=== PATIENT | male | born 1940 | race Caucasian/White ===

== ENCOUNTER 2016-11-11 05:47 | Day surgery (SDC) | payer MEDICARE ==
[2016-11-03 12:15] VITALS: BMI 34.9
[~2016-11-11 05:47] MED LIST: ALPRAZolam 0.25 MG TAB PO PRN; ALPRAZolam 0.5 MG TAB PO PRN; ASPIRIN 325 MG TAB PO STA; ATORVASTATIN 80 MG TAB PO STA; NITROGLYCERIN SL TABS 0.4 MG TAB SUBLINGUAL PRN; SODIUM CHLORIDE 0.9% 1,000 ML in EMPTY BAG 1 BAG IV ONE
[2016-11-11] MEDS ORDERED: SODIUM CHLORIDE 0.9% 1,000 ML IV ONE (06:15)
[2016-11-11] MEDS ORDERED: LIDOCAINE 2% INJ 20 MG/ML (20 ML MDV) ONE ×2 (08:47→12:19)
[2016-11-11] MEDS ORDERED: MIDAZOLAM 2 MG/2 ML VIAL ONE ×2 (08:59→11:05)
[2016-11-11] MEDS ORDERED: diphenhydrAMINE 50 MG/ML 1 ML VIAL ONE (08:59)
[2016-11-11] MEDS ORDERED: diphenhydrAMINE 50 MG/ML 1 ML VIAL IVP ONE (09:05)
[2016-11-11] MEDS ORDERED: MIDAZOLAM 2 MG/2 ML VIAL IV ONE ×2 (09:06→09:07)
[2016-11-11] MEDS ORDERED: LIDOCAINE 2% INJ 20 MG/ML SQ ONE ×2 (09:07→12:21)
[2016-11-11] MEDS ORDERED: HEPARIN SODIUM 1,000 UNIT/ML VIAL ONE (09:27)
[2016-11-11] MEDS ORDERED: IOHEXOL 350 MG/ML 100 ML BOTTLE INJ ONE (09:30)
[2016-11-11] MEDS ORDERED: RX INFO: IV CONTRAST WAS GIVEN 1 EACH MISC MISCELLANE PRN ×2 (09:33→12:51)
--- NOTE | 2016-11-11 09:39 | P.PCN ---
Date of Procedure: 11/11/16 Preoperative Diagnosis: New-onset angina and strongly positive stress test Postoperative Diagnosis: Critical lesion involving the proximal to mid LAD Procedure(s) Performed: Left heart catheterization without left ventriculography Description of Procedure: HISTORY: This is a 76-year-old gentleman with history of hypertension and hypercholesterolemia who started having exertional chest pain recently patient had a positive stress test at low workloads with ischemia documented on the stress echocardiogram in the anteroapical area. Patient is advised to have a cardiac catheterization. Patient has been on beta blockers and nitrates along with aspirin. CONSENT:I have discussed the risks, benefits and alternative therapies for the above-mentioned procedure and for both sedation/analgesia as well as necessary blood product administration, if indicated, as they pertain to this patient. The patient has indicated understanding and acceptance of the risks and procedures discussed. PROCEDURE: Patient was brought to the lab in a fasting state. Patient was given some IV sedation. The right groin is infiltrated with lidocaine and right femoral artery was entered using Seldinger technique. A 6-[place] catheter was left in place and selective coronary arteriography was performed. Patient tolerated the procedure well. Patient is found to have a critical lesion in the proximal LAD and is waiting to have stent placement by Dr. DELORES Post. No immediate complications were noted and patient was transferred to [facility] in a stable condition HEMODYNAMICS: The aortic pressure is about 130/70. Left ankle end-diastolic pressures of 15. There was no gradient across the aortic valve. SELECTIVE CORONARY ARTERIOGRAPHY: LEFT MAIN: Normal length and patent THE LEFT ANTERIOR DESCENDING CORONARY ARTERY: This is a good caliber vessel with about 95% complex lesion involving the proximal LAD between first septal and diagonal branches. Rest of the vessel is free of occlusive disease THE LEFT CIRCUMFLEX AND IS CORONARY ARTERY: This is a moderate caliber vessel giving rise to good-sized OM branch. This is free of any significant occlusive disease THE RIGHT CORONARY ARTERY: This is a dominant vessel giving rise to good-sized PDA and PLV. This is free of any significant occlusive disease LEFT VENTRICULOGRAPHY: Not performed FINAL IMPRESSION: Critical lesion involving the LAD between the first septal and diagonal branches. The rest of the vessels are free of occlusive disease PLAN: Stent placement of LAD to be done by Dr. DELORES Post later today PROGNOSIS: Fair
[2016-11-11] MEDS ORDERED: SODIUM CHLORIDE 0.9% 1,000 ML IV SCH ×2 (09:45→12:55)
[2016-11-11] MEDS ORDERED: MIDAZOLAM 2 MG/2 ML VIAL IVP ONE (11:28)
[2016-11-11] MEDS ORDERED: BIVALIRUDIN BOLUS 250 MG/50 ML IV ONE (11:35)
[2016-11-11] MEDS ORDERED: IV FLUID CONTINUATION 450 ML IV ONE (11:36)
[2016-11-11] MEDS ORDERED: BIVALIRUDIN 250 MG in SODIUM CHLORIDE 0.9% 50 ML IV ONE ×2 (11:36→12:14)
[2016-11-11] MEDS ORDERED: NITROGLYCERIN 1000MCG/10ML SYRINGE INTRACORON ONE (12:06)
[2016-11-11] MEDS ORDERED: niCARdipine Syringe (1,000 mcg/10 mL) INTRACORON ONE (12:10)
[2016-11-11] MEDS ORDERED: niCARdipine 25 MG/10 ML VIAL ONE (12:10)
[2016-11-11] MEDS ORDERED: SODIUM CHLORIDE 0.9% (PF) 10 ML VIAL ONE (12:10)
[2016-11-11] MEDS ORDERED: NOREPINEPHRINE 4 MG in SODIUM CHLORIDE 0.9% 250 ML IV ONE (12:14)
[2016-11-11] MEDS ORDERED: HYDROmorphone 2 MG/ML 1 ML SYRINGE ONE (12:20)
[2016-11-11] MEDS ORDERED: PRASUGREL 10 MG TAB ONE (12:20)
[2016-11-11] MEDS ORDERED: PRASUGREL 10 MG TAB PO ONE (12:23)
[2016-11-11] MEDS ORDERED: HYDROmorphone 2 MG/ML 1 ML SYRINGE IVP ONE (12:23)
[2016-11-11] MEDS ORDERED: SODIUM CHLORIDE 0.9% 500 ML IV ONE (12:26)
[2016-11-11] MEDS ORDERED: IODIXANOL 320 MG/ML 100 ML INTRAARTER ONE (12:33)
[2016-11-11] MEDS ORDERED: ZOLPIDEM 5 MG TAB PO PRN (12:51)
[2016-11-11] MEDS ORDERED: NITROGLYCERIN SL TABS 0.4 MG TAB SUBLINGUAL PRN (12:51)
[2016-11-11] MEDS ORDERED: MAG HYDROX/AL HYDROX/SIMETH 30 ML CUP PO PRN (12:51)
[2016-11-11] MEDS ORDERED: ATORVASTATIN 80 MG TAB PO SCH (21:00)
--- NOTE | 2016-11-11 21:57 | PTCA ---
DATE OF SERVICE: 11/11/2016 PROCEDURE: Percutaneous transluminal coronary angioplasty and stenting of proximal left anterior descending coronary artery. PERFORMED BY: Dr. Fartun Post. CLINICAL INFORMATION: Mr. Eddie Garza is a 76-year-old gentleman with a history of hypertension, hyperlipidemia and a recent strongly positive stress test who underwent a cardiac catheterization performed by Dr. Hernandez from the right femoral approach. Study revealed a proximal LAD lesion located at a major septal branch, both before and after the septal branch, and this was a 90% lesion with haziness suggestive of thrombus. The other vessels were relatively free of significant disease, although the circumflex was very tortuous and the origin seemed a bit suspicious. PROCEDURE NOTE: The existing 6 Cambodian introducer in the right femoral artery was used to perform the procedure. I tried different guide catheters, but eventually a 4.0 Voda catheter was appropriate for guide support. A BMW wire was kept distally. Without predilatation, a 3.25 caliber 15 mm long Xience stent was deployed. With the deployment of stent, patient had chest pain and precordial ST elevation. After the stent deployment, the lesion looked stable, but the septal branch was totally occluded, which I expected, given the fact it was coming from within the middle of the lesion. Septal branch was small, less than 1.5 mm caliber, but appeared to supply a fair amount of myocardium. I gave some nitroglycerin, and with this patient became hypotensive and there was some sluggish flow in the entire LAD transiently; required Levophed for about 3 to 4 minutes. However, he stabilized immediately and I gave nicardipine 150 mcg. Eventual angiograms revealed excellent angiographic result. Beyond the stented segment in the mid portion there was a 35% to 40% stenosis. Patient remained hemodynamically stable and was completely free of chest pain. He had transient chest pain requiring some Dilaudid for the septal occlusion. The residual stenosis was 0%, with remarkable improvement in angiographic appearance and flow without complication. The sheath was taken out and a Perclose device used to secure hemostasis, and he was sent to the room in stable condition. ASSESSMENT: From pre-procedure stenosis of about 90% with haziness and thrombus before and after the septal branch, the angiographic result was excellent in the LAD with occlusion of the septal branch. EKG was normal. Flow was excellent. The patient was free of chest pain at the time of leaving the medical laboratory technologist. Results were discussed with the patient and family and also with Dr. Hernandez.
--- NOTE | 2016-11-11 21:59 | LTR ---
November 11, 2016 RE: Eddie Garza Dear Dr. Head, Thank you for the opportunity to participate in the care of Mr. Langley. Please find enclosed my detailed PTCA report for your records. His proximal LAD was addressed with a drug-eluting stent. He should be on aspirin and Effient or Plavix without interruption for the next one year. Thank you for your referral. Please call with questions. Sincerely, KATIA MCKEON MD
[2016-11-12 06:10] LABS: Basophils % (A) 1 %; CH 31.4; CHCM 32.8; Eosinophils # (A) 0.1 k/uL (0-0.7); Eosinophils % (A) 2 %; HCT 40.6 % (39.0-53.0); HDW 2.43; HGB 12.7 gm/dL (13.0-17.5); Luc # (Auto) 0.09; Luc % (Auto) 2; Lymphocytes # (A) 1.2 k/uL (1.0-4.8); Lymphocytes % (A) 23 %; MCH 30.1 pg (25.0-35.0); MCHC 31.2 g/dL (31.0-37.0); MCV 96.3 fL (80.0-100.0); Monocytes # (A) 0.4 k/uL (0-1.0); Monocytes % (A) 8 %; Neutrophils # (A) 3.5 k/uL (1.3-7.7); Neutrophils % (A) 66 %; RBC 4.22 m/uL (4.30-5.90); RDW 13.6 % (11.5-15.5); WBC 5.4 k/uL (3.8-10.6)
[2016-11-12 06:22] LABS: Anion Gap 9 mmol/L; Blood Urea Nitrogen 20 mg/dL (9-20); Calcium 9.3 mg/dL (8.4-10.2); Carbon Dioxide 24 mmol/L (22-30); Chloride 108 mmol/L (98-107); Glucose 102 mg/dL (74-99); Non-African American GFR(MDRD) 59 (>60 ml/min/1.73 sqM); Potassium 4.7 mmol/L (3.5-5.1); Sodium 141 mmol/L (137-145)
[2016-11-12] MEDS: PANTOPRAZOLE 40 MG TABLET PO SCH ×2 (06:40→09:11)
[2016-11-12] MEDS ORDERED: ASPIRIN 81 MG CHEW PO SCH (09:00)
[2016-11-12] MEDS ORDERED: METOPROLOL TARTRATE 25 MG TAB PO SCH (09:00)
[2016-11-12 09:11] VITALS: BP 135/70; PULSE 77; RESP 16; TEMP 97.1
--- NOTE | 2016-11-12 09:32 | P.PN ---
Subjective Principal diagnosis: LAD stent Discharge note This is a pleasant 76-year-old gentleman with history of hypertension and hyperlipidemia who was noted to the hospital to undergo cardiac catheterization because of a strongly positive stress test. Cardiac cath was performed by Dr. monet Kearney and subsequently patient underwent angioplasty with stent placement of the LAD. EKG this morning shows normal sinus rhythm with no changes from post-PCI. Patient denies any chest pain or difficulty in breathing, he has been up ambulating without any difficulty this morning. Blood pressure this morning 134/70, heart rate in the 70s. Hemoglobin this morning 12.7, platelet count 160, potassium 4.7, BUN 20, creatinine 1.2. Patient is currently on aspirin 81 mg daily, Lipitor 80 mg daily, metoprolol tartrate 12-1/2 mg daily, Protonix 40 mg one tablet by mouth twice a day, Effient 10 mg daily, and sublingual nitroglycerin as needed for chest pain. He is currently not on an GUILLERMO inhibitor because the patient was quite hypotensive. This will be reevaluated at his outpatient office appointments. He may be able to be discharged home today, we will make him a follow-up appointment with Dr. monet Kearney in the office post discharge. Objective - Vital Signs Vital signs: Vital Signs Temp 97.1 F L 11/12/16 08:00 Pulse 77 11/12/16 08:00 Resp 16 11/12/16 08:00 BP 135/70 11/12/16 08:00 Pulse Ox 97 11/12/16 08:00 Intake & Output 11/11/16 11/12/16 11/12/16 18:59 06:59 18:59 Intake Total 732.5 Output Total 0 450 Balance 732.5 -450 Weight 122.4 kg 120.6 kg Intake: IV 732.5 Sodium Chloride 0.9% 1, 100 000 ml @ 100 mls/hr IV . Q10H BRENDEN Rx#:[id number] Oral 0 Output: Urine 0 450 Other: # Voids 1 - Exam PHYSICAL EXAMINATION: HEENT: Head is atraumatic, normocephalic. Pupils equal, round. Neck is supple. There is no elevated jugular venous pressure. HEART EXAMINATION: Heart S1, S2 normal. No murmur or gallop heard. CHEST EXAMINATION: Lungs are clear to auscultation and precussion. No chest wall tenderness is noted on palpation or with deep breathing. ABDOMEN: Soft, nontender. Bowel sounds are heard. No organomegaly noted. Right groin soft, no evidence of any hematoma, good distal pulse. EXTREMITIES: 2+ peripheral pulses with no evidence of peripheral edema and no calf tenderness noted. NEUROLOGIC patient is awake, alert and oriented -3. . - Labs CBC & Chem 7: 11/12/16 05:52 11/12/16 05:52 Labs: Abnormal Lab Results - Last 24 Hours (Table) 11/12/16 11/12/16 Range/Units 05:52 05:52 RBC 4.22 L (4.30-5.90) m/uL Hgb 12.7 L (13.0-17.5) gm/dL Chloride 108 H (98-107) mmol/L Glucose 102 H (74-99) mg/dL Assessment and Plan Plan: Assessment and plan #1 status post angioplasty with stenting of the left anterior descending artery. #2 positive stress test #3 hypertension history #4 hyperlipidemia Plan Patient may be able to be discharged home today. We will make a follow-up appointment with Dr. Hernandez in the office in one week. Discharge medications include aspirin 81 mg daily, Effient 10 mg daily, Lipitor 80 mg daily, metoprolol tartrate 12-1/2 mg daily, Protonix 40 mg one tablet by mouth twice a day and sublingual nitroglycerin as needed for chest pain. Patient has been educated regarding his medications and prescriptions for the above medications have been provided. DNP note has been reviewed, I agree with a documented findings and plan of care. Patient was seen and examined.
[2016-11-12] MEDS ORDERED: PRASUGREL 10 MG TAB PO SCH (12:53)
== END 2016-11-12 11:28 | disposition home or self-care (01) ==
LOC: CATHCVL 05:47 → 6SEL 12:21 → CATHCVL 11-12 11:28
PROVIDERS: ATTEND Internal Medicine Cardiovascular Disease
DX: I25.110 Atherosclerotic heart disease of native coronary artery with unstable angina pectoris (principal); I25.82 Chronic total occlusion of coronary artery; I21.29 ST elevation (STEMI) myocardial infarction involving other sites; I95.2 Hypotension due to drugs; T46.3X5A Adverse effect of coronary vasodilators, initial encounter; Y92.234 Operating room of hospital as the place of occurrence of the external cause; I10 Essential (primary) hypertension; E78.00 Pure hypercholesterolemia, unspecified; E78.5 Hyperlipidemia, unspecified; Z79.82 Long term (current) use of aspirin; Z79.899 Other long term (current) drug therapy
CPT/HCPCS: 93458; 80048; 85025; C9600; C1769 ×4; C1887 ×4; C1894; C1874; C1760; J2001; J2250; J1170; J1200; Q9967 ×2; J0583; J1644

== ENCOUNTER → 2016-12-22 | Outpatient (CLI) | payer MEDICARE ==
[2016-12-22 07:47] LABS: ALT 39 U/L (21-72); AST 29 U/L (17-59); Cholesterol 116 mg/dL (<200); HDL Cholesterol 46 mg/dL (40-60); Triglycerides 87 mg/dL (<150)
== END | disposition home or self-care (01) ==
LOC: LABWHC1 06:48
PROVIDERS: ATTEND Internal Medicine Cardiovascular Disease
DX: I25.10 Atherosclerotic heart disease of native coronary artery without angina pectoris (principal); E78.5 Hyperlipidemia, unspecified
CPT/HCPCS: 36415; 80061; 84450; 84460

== ENCOUNTER → 2018-06-21 | Outpatient (CLI) | payer MEDICARE ==
[2018-06-21 07:46] LABS: Albumin 3.9 g/dL (3.5-5.0); Bilirubin, Delta 0.2 mg/dL (0.0-0.2); Bilirubin,Unconjugated 0.6 mg/dL (0.0-1.1); Calcium 9.8 mg/dL (8.4-10.2); Potassium 4.3 mmol/L (3.5-5.1); Total Bilirubin 0.8 mg/dL (0.2-1.3); Total Protein 6.6 g/dL (6.3-8.2)
== END | disposition home or self-care (01) ==
LOC: LABWHC1 06:40
PROVIDERS: ATTEND Internal Medicine Cardiovascular Disease
DX: I25.10 Atherosclerotic heart disease of native coronary artery without angina pectoris (principal); E78.5 Hyperlipidemia, unspecified
CPT/HCPCS: 36415; 80048; 80061; 80076

== ENCOUNTER → 2019-06-20 | Outpatient (CLI) | payer MEDICARE ==
[2019-06-20 10:41] LABS: Albumin/Globulin Ratio 1.9 (1.60-3.17); Bilirubin, Conjugated 0.2 mg/dL (0.20-0.40); Bilirubin,Unconjugated 0.4 mg/dL; Globulin 2.1 g/dL (1.6-3.3); LDL Cholesterol,Calculated 52.6 mg/dL (0.0-131.0); Total Bilirubin 0.6 mg/dL (0.3-1.2); Total Protein 6.1 g/dL (6.2-8.2); VLDL Calculation 14.4 mg/dL (5.00-40.00)
== END ==
LOC: LABWHC1 06:34
PROVIDERS: ATTEND Internal Medicine Cardiovascular Disease
DX: I25.10 Atherosclerotic heart disease of native coronary artery without angina pectoris (principal); E78.5 Hyperlipidemia, unspecified
CPT/HCPCS: 36415; 80061; 80076

== ENCOUNTER → 2020-03-19 | Outpatient (CLI) | payer MEDICARE ==
[2020-03-19 15:25] LABS: Chol/HDL Ratio 2.22; LDL Cholesterol,Calculated 50.8 mg/dL (0.0-131.0); VLDL Calculation 11.2 mg/dL (5.00-40.00)
== END | disposition home or self-care (01) ==
LOC: LABWHC1 08:17
PROVIDERS: ATTEND Internal Medicine Cardiovascular Disease
DX: E78.5 Hyperlipidemia, unspecified (principal); I25.10 Atherosclerotic heart disease of native coronary artery without angina pectoris
CPT/HCPCS: 36415; 80061; 84450; 84460

== ENCOUNTER → 2022-03-31 | Outpatient (CLI) | payer MEDICARE ==
--- NOTE | 2022-04-01 08:57 | CA ---
Transthoracic Echo Report Name: Eddie Garza Age: 81 Gender: M : 1940 Exam Date: 03/31/2022 14:51 Exam Location: [facility] Ht (in): 72 Wt (lb): 260 Ordering Physician: Kevin Head MD Attending/Referring Phys: Kevin Head MD Metal Drilling Machine Operator Kristina Jorgensen MEG Procedure CPT: Indications: CAD Cardiac Hx: Technical Quality: Good Contrast 1: N/A Total Dose (mL): Contrast 2: Total Dose (mL): MEASUREMENTS (Male / Female) Normal Values 2D ECHO LV Diastolic Diameter PLAX 5.4 cm 4.2 - 5.9 / 3.9 - 5.3 cm LV Systolic Diameter PLAX 3.6 cm IVS Diastolic Thickness 1.5 cm 0.6 - 1.0 / 0.6 - 0.9 cm LVPW Diastolic Thickness 1.6 cm 0.6 - 1.0 / 0.6 - 0.9 cm LV Relative Wall Thickness 0.6 LA Volume 60.4 cm??? 18 - 58 / 22 - 52 cm??? M-MODE Aortic Root Diameter MM 4.2 cm LA Systolic Diameter MM 4.1 cm LA Ao Ratio MM 1.0 MV E Point Septal Separation 1.5 cm AV Cusp Separation MM 2.1 cm DOPPLER AV Peak Velocity 137.1 cm/s AV Peak Gradient 7.5 mmHg MV Area PHT 3.4 cm??? Mitral E Point Velocity 54.6 cm/s Mitral A Point Velocity 73.0 cm/s Mitral E to A Ratio 0.7 MV Deceleration Time 223.3 ms MV E' Velocity 6.4 cm/s Mitral E to MV E' Ratio 8.6 TR Peak Velocity 255.1 cm/s TR Peak Gradient 26.0 mmHg Right Ventricular Systolic Press 30.9 mmHg FINDINGS Left Ventricle Left ventricular ejection fraction is estimated at 50-55%. Moderately increased left ventricular wall thickness. Right Ventricle Normal right ventricular size and function. Right ventricular systolic pressure within normal limits. Right Atrium Normal right atrial size. Left Atrium Mildly increased left atrial volume. Mildly increased left atrial area. Mitral Valve Mild mitral regurgitation. Aortic Valve Trace to mild aortic regurgitation. Tricuspid Valve Mild tricuspid regurgitation. Pulmonic Valve Pulmonic valve not well visualized. Pericardium Normal pericardium. Aorta Normal size aortic root and proximal ascending aorta. CONCLUSIONS Normal left ventricular dimension and systolic function Mild aortic insufficiency Previewed by: Dr. Ciro Duncan MD (Electronically Signed) Final Date: 01 Apr 2022 08:56
== END | disposition home or self-care (01) ==
LOC: RADECHMAIN 14:37
PROVIDERS: ATTEND Family Medicine
DX: I35.1 Nonrheumatic aortic (valve) insufficiency (principal); I07.1 Rheumatic tricuspid insufficiency
CPT/HCPCS: 93306

== ENCOUNTER 2022-08-07 10:57 | Emergency (ER) | payer MEDICARE ==
[2022-08-07 11:25] VITALS: TEMP 97.9
--- NOTE | 2022-08-07 12:38 | CT ---
EXAMINATION TYPE: CT brain wo con, CT facial bones wo con CT DLP: 1139.4 (accession [id number]), Included in CT Brain DLP of 1129.4 (accession [id number]) mGycm, A utomated exposure control for dose reduction was used. DATE OF EXAM: 08/07/2022 12:27 PM COMPARISON: None CLINICAL INDICATION:Male, 82 years old with history of Head trauma from fall, Fall TECHNIQUE: Brain: Axial CT images of the brain were obtained with coronal and sagittal reformats created and rev iewed. Facial: Axial CT images of the brain with sagittal and coronal reformats. Contrast used: None. Oral contrast used: None. FINDINGS: Brain: Extra-axial spaces: No abnormal extra-axial fluid collections. Ventricular system: Within normal limits Cerebral parenchyma: No acute intraparenchymal hemorrhage or mass effect. The león-white junction is well differentiated. Cerebellum: Unremarkable. Mass effect: No evidence of midline shift. Intracranial vasculature: Atherosclerotic calcifications of the intracranial vessels. Calvarium/osseous structures: No depressed skull fracture. Paranasal sinuses and mastoid air cells: Mild scattered paranasal sinus disease. Visualized orbits: Orbital contents are intact. Facial: Right periorbital soft tissue edema. No evidence of fracture. There is increased pneumatization of th e frontal sinuses bilaterally. Scattered mucosal thickening of the paranasal sinuses. Bilateral Yasmin r air cells are noted. Unprotected anterior ethmoidal arteries bilaterally. IMPRESSION: 1. No acute intracranial process. 2. Periorbital soft tissue edema without evidence of fracture.
--- NOTE | 2022-08-07 12:45 | ED ---
Fall HPI - General Chief Complaint: Fall Stated Complaint: Fall Time Seen by Provider: 08/07/22 11:35 Source: patient, family, RN notes reviewed Mode of arrival: ambulatory - History of Present Illness Initial Comments: This is an 82-year-old male who presents to the emergency department for a fall. States that he was walking into yarsani, when he missed a step, causing him to f all face forward. Denies any loss of consciousness. Currently has pain and swelling around the right eye. Denies any visual changes. He does not have any injuries or pain to the arms, legs, or any other areas on his body. Pain is currently controlled at this time. He takes a baby aspirin daily and is otherwise not on any blood thinners. Denies any fevers, chills, sore throat, cough, dyspnea, chest pain, palpitations, abdominal pain, nausea, vomiting, diarrhea, or back pain. MD Complaint: fall Fall From: standing Fall Witnessed: yes, by bystander Place Fall Occurred: other (yarsani) Loss of Consciousness: none Prolonged Down Time?: no Location: face Context: tripped/slipped - Related Data Home Medications Medication Instructions Recorded Confirmed Aspirin [Adult Low Dose Aspirin EC] 81 mg PO DAILY 11/03/16 11/11/16 Cholecalciferol [Vitamin D3 (10 200 unit PO DAILY 11/03/16 11/11/16 Mcg = 400 Iu)] Losartan [Cozaar] 100 mg PO DAILY 11/03/16 11/11/16 Nitroglycerin Sl Tabs [Nitrostat] 0.4 mg SUBLINGUAL Q5M PRN 11/03/16 11/11/16 Omeprazole 20 mg PO BID 11/03/16 11/11/16 Terazosin [Hytrin] 5 mg PO BID 11/03/16 11/11/16 Previous Rx's Medication Instructions Recorded Atorvastatin [Lipitor] 80 mg PO HS #30 tab 11/12/16 Metoprolol Tartrate [Lopressor] 12.5 mg PO DAILY #30 tab 11/12/16 Prasugrel [Effient] 10 mg PO DAILY #30 tab 11/12/16 Allergies Allergy/AdvReac Type Severity Reaction Status Date / Time No Known Allergies Allergy Verified 08/07/22 11:25 Review of Systems ROS Statement: Those systems with pertinent positive or pertinent negative responses have been documented in the HPI. ROS Other: All systems not noted in ROS Statement are negative. Past Medical History Past Medical History: Hyperlipidemia, Hypertension, Osteoarthritis (OA) Additional Past Medical History / Comment(s): Hx detached retina. History of Any Multi-Drug Resistant Organisms: None Reported Past Surgical History: Heart Catheterization With Stent, Hernia Repair, Joint Replacement Additional Past Surgical History / Comment(s): 11/11/16 Cardiac stent to LAD. Other surgical hx: Right knee replacement, left hip replacement, hemorroidectomy, colonoscopy. Past Anesthesia/Blood Transfusion Reactions: No Reported Reaction Date of Last Stent Placement:: 11/11/16 Past Psychological History: No Psychological Hx Reported Smoking Status: Never smoker Past Alcohol Use History: None Reported Past Drug Use History: None Reported - Past Family History Mother Family Medical History: Cancer, Congestive Heart Failure (CHF), Diabetes Mellitus Additional Family Medical History / Comment(s): Skin cancer Father Family Medical History: Diabetes Mellitus Additional Family Medical History / Comment(s): Father had diabetes and a hiatal hernia. General Exam Limitations: no limitations General appearance: alert, in no apparent distress Head exam: Present: other (Superficial abrasions to the right side of the forehead) Eye exam: Present: normal appearance, PERRL, EOMI. Absent: scleral icterus, conjunctival injection, periorbital swelling ENT exam: Present: normal exam, mucous membranes moist, TM's normal bilaterally, normal external ear exam Neck exam: Present: normal inspection. Absent: tenderness, meningismus, lymphadenopathy Respiratory exam: Present: normal lung sounds bilaterally. Absent: respiratory distress, wheezes, rales, rhonchi, stridor Cardiovascular Exam: Present: regular rate, normal rhythm, normal heart sounds. Absent: systolic murmur, diastolic murmur, rubs, gallop, clicks Extremities exam: Present: other (No tenderness, swelling, abrasions, or deformities to the upper and lower extremities bilaterally) Neurological exam: Present: alert, oriented X3, CN II-XII intact Psychiatric exam: Present: normal affect, normal mood Skin exam: Present: warm, dry Course Vital Signs 08/07/22 08/07/22 11:23 13:39 Temperature 97.9 F Pulse Rate 61 68 Respiratory 20 16 Rate Blood Pressure 135/84 145/88 O2 Sat by Pulse 98 98 Oximetry Medical Decision Making - Medical Decision Making This is an 82-year-old male who presents to the emergency department for a fall. A computed tomography scan of the brain and facial bones obtained, revealing no acute irregularities such as signs of an intracranial hemorrhage or facial/skull fractures. He has no lacerations that require repair. Advised applying ice for 10-15 minutes every 2-3 hours and alternating with ibuprofen and Tylenol as needed for pain relief. Return precautions reviewed in depth, the patient is instructed to return to the emergency department with any new, worsening, or concerning symptoms. Patient verbalized understanding. This case was discussed in detail with the attending ED physician. Presentation, findings, and treatment plan discussed in detail as well. - Radiology Data Radiology results: report reviewed, image reviewed Disposition Clinical Impression: Fall Disposition: HOME SELF-CARE Instructions (If sedation given, give patient instructions): Concussion (ED), Fall Prevention for Older Adults (ED) Additional Instructions: Return to the emergency department with any new, worsening, or concerning symptoms. Apply ice to the head for 10-15 minutes every 2-3 hours. Alternate with ibuprofen and Tylenol as needed for pain relief. Follow up with your primary care provider in 1-2 days. Is patient prescribed a controlled substance at d/c from ED?: No Referrals: Kevin Head MD [Primary Care Provider] - 1-2 days
[2022-08-07 13:40] VITALS: BP 145/88; PULSE 68; RESP 16
== END 2022-08-07 13:40 | disposition home or self-care (01) ==
LOC: EC 10:57
DX: M79.603 Pain in arm, unspecified (principal); I10 Essential (primary) hypertension; W01.0XXA Fall on same level from slipping, tripping and stumbling without subsequent striking against object, initial encounter; Y92.22 Religious institution as the place of occurrence of the external cause
CPT/HCPCS: 70450; 70486; 99284

== ENCOUNTER → 2022-10-06 | Outpatient (CLI) | payer MEDICARE ==
[2022-10-06 10:43] LABS: ALT 20 U/L (10-49); AST 22 U/L (14-35); Chol/HDL Ratio 2.52 Ratio; LDL Cholesterol,Calculated 64.2 mg/dL (0.0-131.0)
== END | disposition home or self-care (01) ==
LOC: LABWHC1 07:28
PROVIDERS: ATTEND Internal Medicine Interventional Cardiology
DX: E78.2 Mixed hyperlipidemia (principal)
CPT/HCPCS: 36415; 80061; 84450; 84460

== ENCOUNTER → 2023-10-20 | Outpatient (CLI) | payer MEDICARE ==
[2023-10-20 15:37] LABS: Chol/HDL Ratio 1.99 Ratio; LDL Cholesterol,Calculated 43.4 mg/dL (0.0-131.0); VLDL Calculation 12.28 mg/dL (5.00-40.00)
[2023-10-20 15:38] LABS: ALT 23 U/L (10-49); AST 26 U/L (14-35)
== END | disposition home or self-care (01) ==
LOC: LABWHC1 08:00
PROVIDERS: ATTEND Nurse Practitioner Adult Health
DX: E78.2 Mixed hyperlipidemia (principal)
CPT/HCPCS: 36415; 80061; 84450; 84460

== ENCOUNTER → 2024-05-30 | Outpatient (CLI) | payer MEDICARE ==
[2024-05-30 15:29] LABS: ALT 19 U/L (10-49); AST 24 U/L (14-35); Alkaline Phosphatase 80 U/L (41-126); BUN/Creat Ratio 17.08 Ratio (12.00-20.00); Blood Urea Nitrogen 20.5 mg/dL (9.0-27.0); Calcium 9.3 mg/dL (8.7-10.3); Carbon Dioxide 19.4 mmol/L (21.6-31.8); Chloride 108 mmol/L (96-109); Chol/HDL Ratio 1.99 Ratio; Globulin 2.5 g/dL (1.6-3.3); Glucose 123 mg/dL (70-110); Potassium 4.7 mmol/L (3.5-5.5); Sodium 139 mmol/L (135-145); Total Bilirubin 0.5 mg/dL (0.3-1.2); Total Protein 6.5 g/dL (6.2-8.2); VLDL Calculation 12.82 mg/dL (5.00-40.00)
== END | disposition home or self-care (01) ==
LOC: LABWHC1 08:12
PROVIDERS: ATTEND Internal Medicine Interventional Cardiology
DX: I10 Essential (primary) hypertension (principal); E78.2 Mixed hyperlipidemia
CPT/HCPCS: 36415; 80053; 80061

== ENCOUNTER 2024-08-29 12:15 | Observation (INO) | payer MEDICARE ==
--- NOTE | 2024-08-29 12:42 | ED ---
Recheck HPI - General Source: patient, RN notes reviewed Mode of arrival: wheelchair Limitations: no limitations <Christina Self - Last Filed: 08/29/24 12:41> - General Source: patient, RN notes reviewed, old records reviewed Mode of arrival: wheelchair Limitations: no limitations - History of Present Illness MD Complaint: abnormal lab (Leg edema and swelling) -: days(s) Symptoms Since Prior Visit: no new symptoms Associated Symptoms: none Treatments Prior to Arrival: other (0) <Chito Mckeon - Last Filed: 09/04/24 17:53> - General Chief Complaint: Recheck/Abnormal Lab/Rx Stated Complaint: Both Feet Swelling Time Seen by Provider: 08/29/24 12:34 - History of Present Illness Initial Comments: Quick [id number] male with history of hypertension presents the emergency department chief complaint of elevated blood pressures and bilateral lower extremity edema that has been worsening over the past week. Patient states that he is increased his losartan was started on hydrochlorothiazide on Monday with no improvement. Patient denies chest pain, dyspnea, orthopnea, or known history of CHF. (Christina Self) This is a 84-year-old male to the ER with significant hypertension coming in with recent weight gain and leg edema. Significant with no significant shortness of breath currently and no chest pain, patient denies any significant history of heart failure (Chito Mckeon) - Related Data Home Medications Medication Instructions Recorded Confirmed Aspirin [Adult Low Dose Aspirin EC] 81 mg PO DAILY 11/03/16 08/29/24 Omeprazole 20 mg PO BID 11/03/16 08/29/24 Terazosin [Hytrin] 5 mg PO DAILY 11/03/16 08/29/24 Collagen 3 cap PO DAILY 08/29/24 08/29/24 Docusate [Colace] 100 mg PO BID 08/29/24 08/29/24 Dorzolamide-Timol 2.23%/0.68% 1 drop BOTH EYES BID 08/29/24 08/29/24 [Cosopt] Latanoprost [Latanoprost 0.005%] 1 drop BOTH EYES HS 08/29/24 08/29/24 Multivit-Min/FA/Lycopen/Lutein 1 tab PO DAILY 08/29/24 08/29/24 [Centrum Silver Tablet] Omega3/Dha/Epa/Fish Oil/Vit D3 1 cap PO DAILY 08/29/24 08/29/24 [Arnegard-3 Plus Vitamin D3 Softgl] Previous Rx's Medication Instructions Recorded Atorvastatin [Lipitor] 80 mg PO HS #30 tab 11/12/16 Bumetanide [BUMEX] 2 mg PO DAILY #30 tab 09/02/24 Cephalexin [Keflex] 500 mg PO TID #30 cap 09/02/24 Losartan [Cozaar] 100 mg PO DAILY #30 tab 09/02/24 Metoprolol Succinate (ER) [Toprol 100 mg PO DAILY #30 tab 09/02/24 XL] Mupirocin 2% Oint [Bactroban 2% 1 applic TOPICAL TID #20 each 09/02/24 Oint] Potassium Chloride ER [K-Dur 20] 20 meq PO BID #60 tab 09/02/24 amLODIPine [Norvasc] 10 mg PO HS #30 tab 09/02/24 Allergies Allergy/AdvReac Type Severity Reaction Status Date / Time No Known Allergies Allergy Verified 08/29/24 17:32 Review of Systems ROS Other: All systems not noted in ROS Statement are negative. <Christina Self - Last Filed: 08/29/24 12:41> ROS Other: All systems not noted in ROS Statement are negative. <Chito Mckeon - Last Filed: 09/04/24 17:53> ROS Statement: Those systems with pertinent positive or pertinent negative responses have been documented in the HPI. Past Medical History Past Medical History: Hyperlipidemia, Hypertension, Osteoarthritis (OA) Additional Past Medical History / Comment(s): Hx detached retina. History of Any Multi-Drug Resistant Organisms: None Reported Past Surgical History: Heart Catheterization With Stent, Hernia Repair, Joint Replacement Additional Past Surgical History / Comment(s): 11/11/16 Cardiac stent to LAD. Other surgical hx: Right knee replacement, left hip replacement, hemorroidectomy, colonoscopy. Past Anesthesia/Blood Transfusion Reactions: No Reported Reaction Date of Last Stent Placement:: 11/11/16 Past Psychological History: No Psychological Hx Reported Smoking Status: Never smoker Past Alcohol Use History: None Reported Past Drug Use History: None Reported - Past Family History Mother Family Medical History: Cancer, Congestive Heart Failure (CHF), Diabetes Mellitus Additional Family Medical History / Comment(s): Skin cancer Father Family Medical History: Diabetes Mellitus Additional Family Medical History / Comment(s): Father had diabetes and a hiatal hernia. <Christina Self - Last Filed: 08/29/24 12:41> General Exam Limitations: no limitations <AbhiAsif garciaoe - Last Filed: 08/29/24 12:41> General appearance: alert, in no apparent distress, anxious Head exam: Present: atraumatic, normocephalic, normal inspection Eye exam: Present: normal appearance, PERRL, EOMI. Absent: scleral icterus, conjunctival injection, periorbital swelling ENT exam: Present: normal exam, mucous membranes moist Neck exam: Present: normal inspection. Absent: tenderness, meningismus, lymphadenopathy Respiratory exam: Present: normal lung sounds bilaterally. Absent: respiratory distress, wheezes, rales, rhonchi, stridor Cardiovascular Exam: Present: regular rate, normal rhythm, normal heart sounds. Absent: systolic murmur, diastolic murmur, rubs, gallop, clicks GI/Abdominal exam: Present: soft, normal bowel sounds. Absent: distended, tenderness, guarding, rebound, rigid Extremities exam: Present: normal inspection, full ROM, normal capillary refill. Absent: tenderness, pedal edema, joint swelling, calf tenderness Back exam: Present: normal inspection Neurological exam: Present: alert, oriented X3, CN II-XII intact Psychiatric exam: Present: normal affect, normal mood Skin exam: Present: warm, dry, intact, normal color. Absent: rash <Chito Mckeon - Last Filed: 09/04/24 17:53> - General Exam Comments Initial Comments: Visual Physical Exam Vital signs reviewed General: Well-appearing, nontoxic, no acute distress. Head: Normocephalic, atraumatic Eyes: PERRLA, EOMI ENT: Airway patent Chest: Nonlabored breathing Skin: No visual rash, normal skin tone Neuro: Alert and oriented 3 Musculoskeletal: No gross abnormalities (Stieler,Christina) Course <Chito Mckeon - Last Filed: 09/04/24 17:53> Vital Signs 08/29/24 08/29/24 08/29/24 12:34 17:13 18:00 Temperature 97.4 F L Pulse Rate 74 66 73 Respiratory 16 18 17 Rate Blood Pressure 203/110 170/113 151/94 O2 Sat by Pulse 95 97 97 Oximetry 08/29/24 08/29/24 08/30/24 19:16 23:12 00:18 Temperature Pulse Rate 68 75 64 Respiratory 17 18 20 Rate Blood Pressure 207/97 111/81 148/92 O2 Sat by Pulse 97 96 96 Oximetry 08/30/24 08/30/24 08/30/24 01:03 02:00 03:00 Temperature Pulse Rate 77 Respiratory 19 Rate Blood Pressure 135/93 115/89 120/77 O2 Sat by Pulse 95 Oximetry 08/30/24 08/30/24 08/30/24 04:00 04:41 05:27 Temperature Pulse Rate 66 Respiratory 18 Rate Blood Pressure 174/91 151/106 131/89 O2 Sat by Pulse 98 Oximetry 08/30/24 08/30/24 08/30/24 06:00 09:29 13:05 Temperature 98.2 F 98 F Pulse Rate 61 86 82 Respiratory 16 18 16 Rate Blood Pressure 122/94 171/90 150/91 O2 Sat by Pulse 95 97 96 Oximetry 08/30/24 08/30/24 14:42 17:01 Temperature 98.4 F 98 F Pulse Rate 79 64 Respiratory 20 18 Rate Blood Pressure 140/97 133/88 O2 Sat by Pulse 95 97 Oximetry - Reevaluation(s) Reevaluation #1: 08/29/24 16:40 Medical records reviewed (Chito Mckeon) Reevaluation #2: 08/29/24 16:40 Patient symptoms unchanged (Chito Mckeon) Reevaluation #3: 08/29/24 16:40 Patient informed of results and questions answered (Chito Mckeon) Reevaluation #4: Was pt. sent in by a medical professional or institution (, PA, SENIOR BI ARCHITECT, urgent care, hospital, or prison...) When possible be specific @ -no Did you speak to anyone other than the patient for history (EMS, parent, family, police, friend...)? What history was obtained from this source @ -no Did you review nursing and triage notes (agree or disagree)? Why? @ -agree Are old charts reviewed (outside hosp., previous admission, EMS record, old EKG, old radiological studies, urgent care reports/EKG's, prison records)? Report findings @ -yes Differential Diagnosis (chest pain, altered mental status, abdominal pain women, abdominal pain men, vaginal bleeding, weakness, fever, dyspnea, syncope, he adache, dizziness, GI bleed, back pain, seizure, CVA, palpatations, mental health, musculoskeletal)? @ -prior EKG interpreted by me (3pts min.). @ -yes X-rays interpreted by me (1pt min.). @ -yes negative for acute disease CT interpreted by me (1pt min.). @ -no U/S interpreted by me (1pt. min.). @ -no What testing was considered but not performed or refused? (CT, X-rays, U/S, labs)? Why? @ -none What meds were considered but not given or refused? Why? @ -none Did you discuss the management of the patient with other professionals (professionals i.e. , PA, SENIOR BI ARCHITECT, lab, RT, psych nurse, executive secretary social welfare, corrosion prevention metal sprayer, teacher, defence force senior officer, director case)? Give summary @ -no Was smoking cessation discussed for >3mins.? @ -no Was critical care preformed (if so, how long)? @ -no Were there social determinants of health that impacted care today? How? (Homelessness, low income, unemployed, alcoholism, drug addiction, transportation, low edu. Level, literacy, decrease access to med. care, snf, rehab)? @ -none Was there de-escalation of care discussed even if they declined (Discuss DNR or withdrawal of care, Hospice)? DNR status @ -no What co-morbidities impacted this encounter? (DM, HTN, Smoking, COPD, CAD, Cancer, CVA, ARF, Chemo, Hep., AIDS, mental health diagnosis, sleep apnea, m orbid obesity)? @ -none Was patient admitted / discharged? Hospital course, mention meds given and route, prescriptions, significant lab abnormalities, going to OR and other pertinent info. @ - 84 male will be admitted for significant shortness of breath dyspnea CHF suspected with pulmonary edema and overall generalized swelling Admitted Undiagnosed new problem with uncertain prognosis? @ -no Drug Therapy requiring intensive monitoring for toxicity (Heparin, Nitro, Insulin, Cardizem)? @ -no Were any procedures done? @ -no Diagnosis/symptom? @ -Hypertension, pulmonary edema Acute, or Chronic, or Acute on Chronic? @ -Acute Uncomplicated (without systemic symptoms) or Complicated (systemic symptoms)? @ -Complicated Side effects of treatment? @ -no Exacerbation, Progression, or Severe Exacerbation? @ -exacerbation Poses a threat to life or bodily function? How? (Chest pain, [place], [place], pneumonia, PE, COPD, DKA, ARF, appy, cholecystitis, CVA, Diverticulitis, Homicidal, Suicidal, threat to staff... and all critical care pts) @ -yes extremes of age (Chito Mckeon) Reevaluation #5: Differential Dyspnea: Coronary syndrome, arrhythmia, tamponade, asthma, COPD, pulmonary embolism, pneumonia, pneumothorax, pulmonary effusion, anaphylaxis, diabetic ketoacidosis, flailed chest, pulmonary contusion, diaphragmatic rupture, anemia, neuromus cular, this is not meant to be an all-inclusive list. (Chito Mckeon) - Consultations Consultation #1: Spoke with Dr. Head who admit this patient (Chito Mckeon) Medical Decision Making <Christina Self - Last Filed: 08/29/24 12:41> - Lab Data Result diagrams: 08/29/24 13:33 09/02/24 03:55 - EKG Data -: EKG Interpreted by Me (EKG is sinus 64 ID 205 QRS 90 QTc 405) - Radiology Data Radiology results: report reviewed (Chest x-ray positive for pneumonitis versus edema, x-ray foot negative for acute disease), image reviewed <Chito Mckeon - Last Filed: 09/04/24 17:53> - Medical Decision Making I completed the quick note portion of this chart signed Christina Self PA-C (Christina Self) 84 male will be admitted for significant shortness of breath dyspnea CHF suspected with pulmonary edema and overall generalized swelling (Young Mckeon) - Lab Data Lab Results 08/29/24 08/29/24 08/29/24 Range/Units 13:33 13:33 13:33 WBC 6.3 (3.8-10.6) k/uL RBC 4.12 L (4.30-5.90) m/uL Hgb 12.9 L (13.0-17.5) gm/dL Hct 39.6 (39.0-53.0) % MCV 96.3 (80.0-100.0) fL MCH 31.3 (25.0-35.0) pg MCHC 32.5 (31.0-37.0) g/dL RDW 15.1 (11.5-15.5) % Plt Count 178 (150-450) k/uL MPV 8.0 Neutrophils % 66 % Lymphocytes % 23 % Monocytes % 6 % Eosinophils % 2 % Basophils % 1 % Neutrophils # 4.2 (1.3-7.7) k/uL Lymphocytes # 1.5 (1.0-4.8) k/uL Monocytes # 0.4 (0-1.0) k/uL Eosinophils # 0.1 (0-0.7) k/uL Basophils # 0.0 (0-0.2) k/uL PT 10.1 (10.0-12.5) sec INR 0.9 (<1.2) APTT 24.5 (22.0-30.0) sec Sodium 138 (137-145) mmol/L Potassium 3.7 (3.5-5.1) mmol/L Chloride 105 (98-107) mmol/L Carbon Dioxide 27 (22-30) mmol/L Anion Gap 6 mmol/L BUN 15 (9-20) mg/dL Creatinine 0.93 (0.66-1.25) mg/dL Est GFR (CKD-EPI)AfAm 88 (>60 ml/min/1.73 sqM) Est GFR (CKD-EPI)NonAf 76 (>60 ml/min/1.73 sqM) Glucose 115 H (74-99) mg/dL Plasma Lactic Acid Pool (0.7-2.0) mmol/L Calcium 9.3 (8.4-10.2) mg/dL Magnesium 1.7 (1.6-2.3) mg/dL Total Bilirubin 1.2 (0.2-1.3) mg/dL AST 47 (17-59) U/L ALT 25 (4-49) U/L Alkaline Phosphatase 82 (38-126) U/L Troponin I (0.000-0.034) ng/mL NT-Pro-B Natriuret Pep 133 pg/mL Total Protein 6.6 (6.3-8.2) g/dL Albumin 3.9 (3.5-5.0) g/dL 08/29/24 08/29/24 Range/Units 13:33 13:33 WBC (3.8-10.6) k/uL RBC (4.30-5.90) m/uL Hgb (13.0-17.5) gm/dL Hct (39.0-53.0) % MCV (80.0-100.0) fL MCH (25.0-35.0) pg MCHC (31.0-37.0) g/dL RDW (11.5-15.5) % Plt Count (150-450) k/uL MPV Neutrophils % % Lymphocytes % % Monocytes % % Eosinophils % % Basophils % % Neutrophils # (1.3-7.7) k/uL Lymphocytes # (1.0-4.8) k/uL Monocytes # (0-1.0) k/uL Eosinophils # (0-0.7) k/uL Basophils # (0-0.2) k/uL PT (10.0-12.5) sec INR (<1.2) APTT (22.0-30.0) sec Sodium (137-145) mmol/L Potassium (3.5-5.1) mmol/L Chloride (98-107) mmol/L Carbon Dioxide (22-30) mmol/L Anion Gap mmol/L BUN (9-20) mg/dL Creatinine (0.66-1.25) mg/dL Est GFR (CKD-EPI)AfAm (>60 ml/min/1.73 sqM) Est GFR (CKD-EPI)NonAf (>60 ml/min/1.73 sqM) Glucose (74-99) mg/dL Plasma Lactic Acid Pool 1.2 (0.7-2.0) mmol/L Calcium (8.4-10.2) mg/dL Magnesium (1.6-2.3) mg/dL Total Bilirubin (0.2-1.3) mg/dL AST (17-59) U/L ALT (4-49) U/L Alkaline Phosphatase (38-126) U/L Troponin I <0.012 (0.000-0.034) ng/mL NT-Pro-B Natriuret Pep pg/mL Total Protein (6.3-8.2) g/dL Albumin (3.5-5.0) g/dL Disposition <Christina Self - Last Filed: 08/29/24 12:41> Is patient prescribed a controlled substance at d/c from ED?: No Time of Disposition: 16:40 <Chito Mckeon - Last Filed: 09/04/24 17:53> Clinical Impression: Hypertension, Weakness, Leg edema Disposition: ADMITTED IP TO THIS HOSP Condition: Good
--- NOTE | 2024-08-29 13:21 | XR ---
EXAMINATION TYPE: XR chest 2V, XR foot complete 3 views RT DATE OF EXAM: 08/29/2024 COMPARISON: None HISTORY: 84-year-old male pain, swelling, redness second and third digits of the right foot as well a s shortness of breath FINDINGS: Chest: Dextroconvex scoliosis. Heart upper limits of normal in size. Aorta within normal limits. Diffuse int erstitial density but without consolidation or pleural effusion. Degenerative change right glenohumer al joint. Right foot: Osteopenia. Vascular calcifications. Forefoot soft tissue swelling is noted. No mio osseous erosion /bony destruction is seen. Some ossification is noted along the plantar soft tissues mid to hindfoot. Vascular calcifications. H ammertoes. Posterior and plantar heel spurs. Os supra naviculare on the lateral view. No acute fracture, subluxation, dislocation is seen. IMPRESSION: Chest: 1. Borderline heart size and diffuse interstitial opacity. Consider interstitial pulmonary edema vers us atypical pneumonias or interstitial pneumonitis. 2. Dextroconvex scoliosis. Right foot: 3. Osteopenia especially at the forefoot. Prominent soft tissue swelling especially forefoot and midf oot. 4. No definite acute osseous abnormality seen. 5. Ossification along the plantar soft tissues mid and hindfoot suggesting sequela of old injury to t he plantar fascia. [facility], , 08/29/2024 1:19 PM
[2024-08-29 13:48] LABS: Basophils % (A) 1 %; Eosinophils # (A) 0.1 k/uL (0-0.7); Eosinophils % (A) 2 %; HCT 39.6 % (39.0-53.0); HGB 12.9 gm/dL (13.0-17.5); Lymphocytes # (A) 1.5 k/uL (1.0-4.8); Lymphocytes % (A) 23 %; MCH 31.3 pg (25.0-35.0); MCHC 32.5 g/dL (31.0-37.0); MCV 96.3 fL (80.0-100.0); Monocytes # (A) 0.4 k/uL (0-1.0); Monocytes % (A) 6 %; Neutrophils # (A) 4.2 k/uL (1.3-7.7); Neutrophils % (A) 66 %; Platelet Count 178 k/uL (150-450); RBC 4.12 m/uL (4.30-5.90); RDW 15.1 % (11.5-15.5); WBC 6.3 k/uL (3.8-10.6)
[2024-08-29 14:12] LABS: ALT 25 U/L (4-49); African American GFR (CKD) 88 (>60 ml/min/1.73 sqM); Albumin 3.9 g/dL (3.5-5.0); Anion Gap 6 mmol/L; Blood Urea Nitrogen 15 mg/dL (9-20); Calcium 9.3 mg/dL (8.4-10.2); Carbon Dioxide 27 mmol/L (22-30); Chloride 105 mmol/L (98-107); Glucose 115 mg/dL (74-99); Non-African American GFR(CKD) 76 (>60 ml/min/1.73 sqM); Sodium 138 mmol/L (137-145); Total Bilirubin 1.2 mg/dL (0.2-1.3); Total Protein 6.6 g/dL (6.3-8.2)
[2024-08-29 14:16] LABS: INR 0.9 (<1.2); Partial Thromboplastin Time 24.5 sec (22.0-30.0); Prothrombin Time 10.1 sec (10.0-12.5)
[2024-08-29 14:17] LABS: AST 47 U/L (17-59); Alkaline Phosphatase 82 U/L (38-126); Magnesium 1.7 mg/dL (1.6-2.3); Potassium 3.7 mmol/L (3.5-5.1)
[2024-08-29 14:21] LABS: NT-Pro-B-Type Natriuretic Pept 133 pg/mL
[2024-08-29] MEDS ORDERED: IPRATROPIUM-ALBUTEROL 3 ML NEB INHALATION PRN (19:01)
[2024-08-29] MEDS ORDERED: PNEUMONIA PROTOCOL UTILIZED 1 EACH MISC PO PRN (19:01)
[2024-08-29] MEDS: FUROSEMIDE 10 MG/ML 4 ML VIAL IV SCH (19:57)
[2024-08-29] MEDS: ASPIRIN 325 MG TAB PO STA (19:57)
[2024-08-29] MEDS: AZITHROMYCIN 500 MG in SODIUM CHLORIDE 0.9% 250 ML IVPB STA (20:46)
[2024-08-30] MEDS: AZITHROMYCIN 500 MG TAB PO SCH (09:19)
[2024-08-30] MEDS: ASPIRIN 325 MG TAB PO SCH (09:20)
--- NOTE | 2024-08-30 09:28 | XR ---
EXAMINATION TYPE: XR chest 1V portable DATE OF EXAM: 08/30/2024 Comparison: 08/29/2024 Clinical History: 84-year-old male pneumonia Findings: Low lung volumes and crowded vascular markings. Heart is mildly enlarged. Diffuse interstitial densit y. No mio progressive consolidation. Right-sided rotator cuff arthropathy. Impression: Mild cardiomegaly. Portable exam further limited by hypoventilatory changes. There is diffuse interst itial density which is increased. [facility], , 08/30/2024 8:51 AM
--- NOTE | 2024-08-30 10:35 | CA ---
Transthoracic Echo Report Name: Eddie Garza Age: 84 Gender: M : 1940 Exam Date: 08/30/2024 08:55 Exam Location: [place] [facility] Ht (in): 74 Wt (lb): 262 Ordering Physician: Chito Mckeon DO Attending/Referring Phys: [id number], Mike Marionette Performer Jacqueline Mims RDCS Procedure CPT: Indications: Heart failure Cardiac Hx: Technical Quality: Technically difficult study Contrast 1: Definity Total Dose (mL): 2 Contrast 2: Total Dose (mL): MEASUREMENTS (Male / Female) Normal Values 2D ECHO LV Diastolic Diameter PLAX 3.8 cm 4.2 - 5.9 / 3.9 - 5.3 cm LV Systolic Diameter PLAX 2.7 cm IVS Diastolic Thickness 1.5 cm 0.6 - 1.0 / 0.6 - 0.9 cm LVPW Diastolic Thickness 1.2 cm 0.6 - 1.0 / 0.6 - 0.9 cm LV Relative Wall Thickness 0.7 RV Internal Dim ED PLAX 4.1 cm LA Volume 74.7 cm??? 18 - 58 / 22 - 52 cm??? LA Volume Index 29.6 cm???/m??? 16 - 28 cm???/m??? M-MODE Aortic Root Diameter MM 4.0 cm LA Systolic Diameter MM 4.7 cm LA Ao Ratio MM 1.2 DOPPLER AV Peak Velocity 148.2 cm/s AV Peak Gradient 8.8 mmHg AV Mean Velocity 91.8 cm/s AV Mean Gradient 4.0 mmHg AV Velocity Time Integral 29.0 cm AI Peak Velocity 263.0 cm/s AI Peak Gradient 27.7 mmHg AI Pressure Half Time 421.7 ms LVOT Peak Velocity 143.4 cm/s LVOT Peak Gradient 8.2 mmHg LVOT Velocity Time Integral 31.3 cm MV Area PHT 2.8 cm??? Mitral E Point Velocity 74.1 cm/s Mitral A Point Velocity 79.6 cm/s Mitral E to A Ratio 0.9 MV Deceleration Time 268.9 ms MV E' Velocity 6.3 cm/s Mitral E to MV E' Ratio 11.8 FINDINGS Left Ventricle Moderately increased left ventricular wall thickness. Left ventricular cavity size normal. Normal left ventricular systolic function with no obvious regional wall motion abnormalities. Left ventricular ejection fraction is estimated at 55-60 %. Grade 1 diastolic dysfunction. Right Ventricle Mild right ventricular dilatation. Right ventricular systolic pressure within normal limits. Right Atrium Normal right atrial size. Left Atrium Mildly increased left atrial volume. Mildly increased left atrial area. Mitral Valve Structurally normal mitral valve. Mitral valve thickened. Mild mitral annular calcification. Mild mitral regurgitation. Aortic Valve Trileaflet aortic valve. No aortic stenosis. Trace to mild aortic regurgitation. Tricuspid Valve Structurally normal tricuspid valve. Mild tricuspid regurgitation. Pulmonic Valve Structurally normal pulmonic valve. Pericardium No pericardial effusion. Echo free space anterior to the right ventricle likely represents a fat pad. Aorta Normal size aortic root and proximal ascending aorta. CONCLUSIONS Normal LV size and systolic function. Mildly enlarged right ventricle. Mitral annular calcification and aortic valve sclerosis. No restriction. Mild mitral and tricuspid regurgitation. No pericardial effusion. Probable fat pad. Normal right-sided pressures Previewed by: Dr. Charito Post MD (Electronically Signed) Final Date: 30 August 2024 10:34
[2024-08-30] MEDS: amLODIPine 5 MG TAB PO STA (13:16)
[2024-08-30] MEDS: METOPROLOL TARTRATE 25 MG TAB PO STA (13:16)
[2024-08-30] MEDS: METOPROLOL SUCCINATE (ER) 100 MG TAB.ER.24H PO SCH (14:41)
[2024-08-30] MEDS: LOSARTAN 50 MG TAB PO SCH (14:41)
[2024-08-30] MEDS: LATANOPROST 0.005% OPHTH DROPS 2.5 ML BTL BOTH EYES SCH (20:18)
[2024-08-30] MEDS: DOCUSATE 100 MG CAP PO SCH (20:18)
[2024-08-30] MEDS: ATORVASTATIN 80 MG TAB PO SCH (20:18)
[2024-08-30] MEDS: amLODIPine 2.5 MG TAB PO SCH (20:18)
[2024-08-30] MEDS: DORZOLAMIDE-TIMOLOL 2.23%/0.68 10ML BTL BOTH EYES SCH (20:19)
--- NOTE | 2024-08-30 20:46 | PN ---
PROGRESS NOTE DATE OF SERVICE: 08/30/2024 CHIEF COMPLAINT: Hypertension. HISTORY OF PRESENT ILLNESS: This gentleman is doing well. His blood pressure is coming down. He has had no chest pain or shortness of breath. PHYSICAL EXAMINATION: CHEST: Quite clear. CARDIAC: Normal. ABDOMEN: Soft and nontender. IMPRESSION: 1. Hypertension. 2. Edema. PLAN: 1. Increase his antihypertensive medications. 2. Increase activity. 3. Continue with IV Lasix for diuresis. MMODL / IJN: [id number] /
[2024-08-30] MEDS ORDERED: METOPROLOL TARTRATE 25 MG TAB PO SCH (21:00)
--- NOTE | 2024-08-30 21:52 | HP ---
HISTORY AND PHYSICAL CHIEF COMPLAINT: Hypertension. HISTORY OF PRESENT ILLNESS: This gentleman has essential hypertension which has been well controlled for years. He takes his blood pressure at home. He did notice his blood pressure is quite high and he came to the emergency room. He had no diaphoresis, shortness of breath, chest pain, change in the vision, etc. He has been having a little bit of increased edema of late. In the emergency room, his blood pressure is quite high, but his BMI and troponin were normal. X-ray did demonstrate cardiomegaly with increased lower lobe markings. REVIEW OF SYSTEMS: He has had no other symptoms including back pain, abdominal pain, etc. He also noticed some redness to the toes on the right foot. Past medical history, family history, personal and social histories reveal that he is allergic to GUILLERMO inhibitors. MEDICATIONS: He is on, 1. Omeprazole. 2. Losartan. 3. Terazosin. 4. Amlodipine. 5. Eyedrops for glaucoma. 6. Metoprolol. 7. Lipitor. 8. Aspirin. SOCIAL HISTORY: He does not smoke or drink. PHYSICAL EXAMINATION: VITAL SIGNS: Blood pressure is 203/110, which had come down to 171/96. He was afebrile. GENERAL: He appeared to be overweight and in no acute distress. Skin color is normal. HEAD, EARS, EYES, NOSE, MOUTH, AND THROAT: Normal. NECK: Neck veins are not distended. Carotids are normal. CHEST: Clear. CARDIAC: Normal sinus rhythm. ABDOMEN: Protuberant, soft and nontender. EXTREMITIES: Normal except he did have about 2+ edema of the lower legs and ankles. NEUROLOGIC: He is intact. ASSESSMENT: He is admitted to the hospital with diagnoses of, 1. Hypertensive urgency. 2. Fluid retention. PLAN: 1. Bedrest. 2. IV fluids. 3. Controlled hypertension. 4. Diuresis. MMODL / IJN: [id number] /
[2024-08-31] MEDS: PANTOPRAZOLE 40 MG TABLET PO SCH (07:45)
[2024-08-31] MEDS: DOXAZOSIN 4 MG TAB PO SCH (07:45)
[2024-08-31] MEDS ORDERED: LOSARTAN 25 MG TAB PO SCH (09:00)
[2024-08-31] MEDS ORDERED: NON FORMULARY DRUG (Aspirin [Adult Low Dose Aspirin Ec] 81 MG Tablet.Dr) PO SCH (09:00)
[2024-08-31 12:42] VITALS: BMI 33.6
--- NOTE | 2024-08-31 13:04 | XR ---
EXAMINATION TYPE: XR chest 2V DATE OF EXAM: 08/31/2024 12:22 PM CLINICAL INDICATION: Male, 84 years old with history of CHF; [facility] COMPARISON: Chest radiographs from 08/30/2024. TECHNIQUE: XR chest 2V Frontal and lateral views of the chest. FINDINGS: Lungs/Pleura: There is no evidence of pleural effusion, focal consolidation, or pneumothorax. Pulmonary vascularity: Pulmonary vascular congestion. Heart/mediastinum: Cardiomediastinal silhouette is enlarged and stable. Musculoskeletal: No acute osseous pathology. IMPRESSION: Cardiomegaly and mild pulmonary vascular congestion. Correlate with BNP for congestive heart failure. [facility], , 08/31/2024 1:01 PM
[2024-08-31 13:20] LABS: ALT 26 U/L (4-49); AST 42 U/L (17-59); African American GFR (CKD) 49 (>60 ml/min/1.73 sqM); Albumin 3.8 g/dL (3.5-5.0); Albumin/Globulin Ratio 1.4; Alkaline Phosphatase 86 U/L (38-126); Anion Gap 7 mmol/L; Blood Urea Nitrogen 22 mg/dL (9-20); Calcium 8.8 mg/dL (8.4-10.2); Carbon Dioxide 28 mmol/L (22-30); Chloride 103 mmol/L (98-107); Globulin 2.7 g/dL; Glucose 155 mg/dL (74-99); Non-African American GFR(CKD) 43 (>60 ml/min/1.73 sqM); Potassium 2.9 mmol/L (3.5-5.1); Sodium 138 mmol/L (137-145); Total Bilirubin 0.9 mg/dL (0.2-1.3); Total Protein 6.5 g/dL (6.3-8.2)
[2024-08-31] MEDS: CEPHALEXIN 500 MG CAP PO SCH (13:21)
[2024-08-31] MEDS: FUROSEMIDE 40 MG TAB PO SCH (13:22)
[2024-08-31] MEDS ORDERED: FUROSEMIDE 40 MG TAB PO SCH (16:00)
[2024-08-31] MEDS: MUPIROCIN 2% OINT 22 GM TUBE TOPICAL SCH (16:47)
[2024-08-31] MEDS: amLODIPine 10 MG TAB PO SCH (20:31)
--- NOTE | 2024-08-31 22:11 | PN ---
PROGRESS NOTE DATE OF SERVICE: 08/31/2024 CHIEF COMPLAINT: Hypertensive emergency. HISTORY OF PRESENT ILLNESS: This gentleman is doing well. Edema is down and blood pressure is down nicely. He has had some problems with cellulitis of the right 2nd, 3rd toes and this will be addressed. PHYSICAL EXAMINATION: VITAL SIGNS: Blood pressure is down to normal. CHEST: Clear. CARDIAC: Normal. EXTREMITIES: He has cellulitis and some aspiration of the right 2nd and 3rd toes. IMPRESSION: 1. Hypertensive urgency. 2. Edema. 3. Cellulitis in the toes of the right foot. PLAN: 1. Change his IV antibiotic to oral. 2. Repeat laboratory studies. 3. Probably home tomorrow. MMODL / IJN: [id number] /
[2024-09-01] MEDS: POTASSIUM CHLORIDE ER 20 MEQ TAB.ER PO SCH ×2 (14:03→15:14)
--- NOTE | 2024-09-02 02:30 | PN ---
PROGRESS NOTE DATE OF SERVICE: 09/01/2024 CHIEF COMPLAINT: Uncontrolled hypertension. HISTORY OF PRESENT ILLNESS: This gentleman is doing well and feeling fine. Blood pressure is down. His potassium has dropped, however. PHYSICAL EXAMINATION: CHEST: Clear. VITAL SIGNS: Systolic blood pressure is now in the 120s and 130s. CARDIAC: Normal. ABDOMEN: Soft and nontender. EXTREMITIES: The infected toes on the right foot look better. IMPRESSION: 1. Hypertensive urgency. 2. Hypokalemia. 3. Cellulitis of the right second and third toes. PLAN: Potassium chloride and recheck potassium tomorrow before discharge. MMODL / IJN: [id number] /
[2024-09-02 07:38] VITALS: BP 123/77; PULSE 61; RESP 16; TEMP 97.8
[2024-09-02 08:50] LABS: BUN/Creat Ratio 19.18 Ratio (12.00-20.00); Blood Urea Nitrogen 32.6 mg/dL (9.0-27.0); Calcium 8.4 mg/dL (8.7-10.3); Carbon Dioxide 25.5 mmol/L (21.6-31.8); Chloride 103 mmol/L (96-109); Glucose 105 mg/dL (70-110); Potassium 3.3 mmol/L (3.5-5.5); Sodium 141 mmol/L (135-145)
[2024-09-03] MEDS ORDERED: BUMETANIDE 1 MG TAB PO SCH (09:00)
--- NOTE | 2024-09-04 06:07 | DS ---
DISCHARGE SUMMARY CHIEF COMPLAINT: Shortness of breath and edema. HISTORY OF PRESENT ILLNESS AND PHYSICAL EXAMINATION: Details of this man's history and physical can be found in the initial workup. LABORATORY STUDIES: While he was in the hospital, he had laboratory studies, details of which can be found in the laboratory section of his chart. COURSE IN THE HOSPITAL: After admission, he was placed on bedrest, started on intravenous fluids and diuretics. Attention was turned to controlling his hypertension, which was very high. His blood pressure came down and his diuresis resulted in less edema. However, his potassium dropped. This was corrected. He is doing well, it was felt he could be discharged on . He will follow up in the office in several days. FINAL DIAGNOSES: 1. Hypertensive urgency. 2. Edema. 3. Hypokalemia. OPERATIONS: None. CONSULTATIONS: None. He is improved. MELANIE / MILANA: [id number] /
== END 2024-09-02 13:17 | disposition home or self-care (01) ==
LOC: EC 12:15 → 6NMEDSUR 19:03 → 4SSUR 08-30 14:10
PROVIDERS: ADMIT Family Medicine; ATTEND Family Medicine
DX: I16.0 Hypertensive urgency (principal); I10 Essential (primary) hypertension; E87.6 Hypokalemia; L03.031 Cellulitis of right toe; E78.5 Hyperlipidemia, unspecified; Z79.82 Long term (current) use of aspirin; Z79.899 Other long term (current) drug therapy
CPT/HCPCS: 96376 ×3; 96366 ×3; 96365; 96367; 96375; 99285; 36415; 93005; 85379; 83880; 80053 ×2; 80048; 83605; 83735; 84484 ×2; 85025; 85610; 85730; 87040; 73630; 71045; 71046 ×2; G0378 ×6; C8929; J1940 ×3; J0456; J0696 ×3; Q9957; 93306

== ENCOUNTER → 2024-09-26 | Outpatient (CLI) | payer MEDICARE ==
--- NOTE | 2024-09-26 15:23 | US ---
EXAMINATION TYPE: US kidneys/renal and bladder DATE OF EXAM: 09/26/2024 COMPARISON: US(10/17/2014) CLINICAL INDICATION: Male, 84 years old with history of R94.4 DECREASED GFR N18.32 CKD STAGE 3B; HTN TECHNIQUE: Grayscale imaging of the bilateral kidneys and urinary bladder: FINDINGS: EXAM MEASUREMENTS: Right Kidney: 10.6x5.7x6.1cm Left Kidney: 11.8x4.8x4.7cm Post Void Residual Volume: 46.9ml Limited due to gas Right Kidney: Anechoic area seen(lat): 1.1cm Left Kidney: Multiple echogenic foci seen Anechoic area seen (lat/mid):1.8x1.6x1.6cm Bladder: wnl Bilateral Jets seen: Yes Normal Post Void Residual: Yes No hydronephrosis. Simple cyst identified within the right kidney measuring up to 1.1 cm laterally. M ultiple nonobstructive left renal calculi. No right renal calculi. Simple cysts identified within the lateral left kidney measuring up to 1.8 cm. Corticomedullary differentiation is maintained bilateral ly. Urinary bladder is within normal limits. Normal post residual. Bilateral ureteral jets identified . IMPRESSION: 1. No hydronephrosis. 2. Nodular 2 left renal calculi. 3. Bilateral simple appearing renal cysts. [facility], , 09/26/2024 3:20 PM
== END | disposition home or self-care (01) ==
LOC: RADUSWWP 14:09
PROVIDERS: ATTEND Family Medicine
DX: N18.32 Chronic kidney disease, stage 3b (principal); N28.1 Cyst of kidney, acquired; N20.0 Calculus of kidney; R94.4 Abnormal results of kidney function studies
CPT/HCPCS: 76770

== ENCOUNTER 2025-01-17 10:59 | Observation (INO) | payer MEDICARE ==
--- NOTE | 2025-01-17 11:19 | ED ---
Chest Pain HPI - General Source: patient, RN notes reviewed Mode of arrival: ambulatory Limitations: no limitations <Paulette Franz - Last Filed: 01/17/25 11:18> - General Source: patient, RN notes reviewed Limitations: no limitations <Cliff Mauricio - Last Filed: 01/17/25 14:42> - General Chief Complaint: Chest Pain Stated Complaint: chest pain Time Seen by Provider: 01/17/25 11:19 - History of Present Illness Initial Comments: Quick note: 84-year-old male presented the ER for evaluation of chest discomfort. He states this started yesterday while he was getting up out of a chair. He states he currently does not have this pain but he does experience it when he is exerting himself or taking deep breaths. He does admit to a cardiac history with stent placement and following up with Dr. Pena. He denies any fevers, chills, shortness of breath, dizziness, lightheadedness, nausea or vomiting. (Paulette Franz) Patient is an 84-year-old male present to the emergency department with concerns with chest discomfort. Onset of symptoms was today. Symptoms are with exertion or deep breaths. Symptoms have now resolved. Discomfort was moderate and sharp. No associated dyspnea, nausea, or diaphoresis. Patient does have cardiac history however symptoms were similar at that time. (Cliff Mauricio) - Related Data Home Medications Medication Instructions Recorded Confirmed Aspirin [Adult Low Dose Aspirin EC] 81 mg PO DAILY 11/03/16 08/29/24 Omeprazole 20 mg PO BID 11/03/16 08/29/24 Terazosin [Hytrin] 5 mg PO DAILY 11/03/16 08/29/24 Collagen 3 cap PO DAILY 08/29/24 08/29/24 Docusate [Colace] 100 mg PO BID 08/29/24 08/29/24 Dorzolamide-Timol 2.23%/0.68% 1 drop BOTH EYES BID 08/29/24 08/29/24 [Cosopt] Latanoprost [Latanoprost 0.005%] 1 drop BOTH EYES HS 08/29/24 08/29/24 Multivit-Min/FA/Lycopen/Lutein 1 tab PO DAILY 08/29/24 08/29/24 [Centrum Silver Tablet] Omega3/Dha/Epa/Fish Oil/Vit D3 1 cap PO DAILY 08/29/24 08/29/24 [[place]-3 Plus Vitamin D3 Softgl] Previous Rx's Medication Instructions Recorded Atorvastatin [Lipitor] 80 mg PO HS #30 tab 11/12/16 Bumetanide [BUMEX] 2 mg PO DAILY #30 tab 09/02/24 Cephalexin [Keflex] 500 mg PO TID #30 cap 09/02/24 Losartan [Cozaar] 100 mg PO DAILY #30 tab 09/02/24 Metoprolol Succinate (ER) [Toprol 100 mg PO DAILY #30 tab 09/02/24 XL] Mupirocin 2% Oint [Bactroban 2% 1 applic TOPICAL TID #20 each 09/02/24 Oint] Potassium Chloride ER [K-Dur 20] 20 meq PO BID #60 tab 09/02/24 amLODIPine [Norvasc] 10 mg PO HS #30 tab 09/02/24 Allergies Allergy/AdvReac Type Severity Reaction Status Date / Time No Known Allergies Allergy Verified 01/17/25 11:08 Review of Systems ROS Other: All systems not noted in ROS Statement are negative. <Paulette Franz - Last Filed: 01/17/25 11:18> ROS Other: All systems not noted in ROS Statement are negative. Constitutional: Denies: fever Eyes: Denies: eye pain ENT: Denies: throat pain Respiratory: Denies: dyspnea Cardiovascular: Reports: as per HPI, chest pain Endocrine: Denies: fatigue Gastrointestinal: Denies: abdominal pain Musculoskeletal: Denies: back pain <Cliff Mauricio - Last Filed: 01/17/25 14:42> ROS Statement: Those systems with pertinent positive or pertinent negative responses have been documented in the HPI. EKG Findings - EKG Results: EKG: interpreted by ERMD (First-degree AV block with a IL of 207.), sinus rhythm, normal axis, normal QRS, normal ST/T <Cliff Mauricio - Last Filed: 01/17/25 14:42> Past Medical History Past Medical History: Hyperlipidemia, Hypertension, Osteoarthritis (OA) Additional Past Medical History / Comment(s): Hx detached retina. History of Any Multi-Drug Resistant Organisms: None Reported Past Surgical History: Heart Catheterization With Stent, Hernia Repair, Joint Replacement Additional Past Surgical History / Comment(s): 11/11/16 Cardiac stent to LAD. Other surgical hx: Right knee replacement, left hip replacement, hemorroidectom y, colonoscopy. Past Anesthesia/Blood Transfusion Reactions: No Reported Reaction Date of Last Stent Placement:: 11/11/16 Past Psychological History: No Psychological Hx Reported Smoking Status: Never smoker Past Alcohol Use History: None Reported Past Drug Use History: None Reported - Past Family History Mother Family Medical History: Cancer, Congestive Heart Failure (CHF), Diabetes Mellitu s Additional Family Medical History / Comment(s): Skin cancer Father Family Medical History: Diabetes Mellitus Additional Family Medical History / Comment(s): Father had diabetes and a hiatal hernia. <Paulette Franz - Last Filed: 01/17/25 11:18> General Exam Limitations: no limitations <Paulette Franz - Last Filed: 01/17/25 11:18> Limitations: no limitations General appearance: alert, in no apparent distress Head exam: Present: normocephalic Eye exam: Present: normal appearance ENT exam: Present: normal oropharynx Neck exam: Present: normal inspection Respiratory exam: Present: normal lung sounds bilaterally. Absent: chest wall tenderness Cardiovascular Exam: Present: regular rate, normal rhythm, normal heart sounds Expanded Peripheral pulses: 2+: Radial (R), Radial (L), Posterior Tibialis (R), Posterior Tibialis (L) GI/Abdominal exam: Present: soft. Absent: tenderness Extremities exam: Present: normal inspection. Absent: pedal edema, calf tend erness Neurological exam: Present: alert Psychiatric exam: Present: normal affect, normal mood Skin exam: Present: normal color <Cliff Mauricio - Last Filed: 01/17/25 14:42> - General Exam Comments Initial Comments: Visual Physical Exam Vital signs reviewed General: Well-appearing, nontoxic, no acute distress. Head: Normocephalic, atraumatic Eyes: PERRLA, EOMI ENT: Airway patent Chest: Nonlabored breathing Skin: No visual rash, normal skin tone Neuro: Alert and oriented 3 Musculoskeletal: No gross abnormalities (Paulette Franz) Course Vital Signs 01/17/25 01/17/25 11:06 14:33 Temperature 97.7 F Pulse Rate 63 58 L Respiratory 20 18 Rate Blood Pressure 138/83 130/84 O2 Sat by Pulse 99 99 Oximetry Chest Pain MDM <Paulette Franz - Last Filed: 01/17/25 11:18> <Cliff Mauricio - Last Filed: 01/17/25 14:42> - [facility] I performed the quick note portion of this chart. Electronically signed by Paulette Franz PA-C (Paulette Franz) Was pt. sent in by a medical professional or institution (KENNEDY Delong, MEDICAL PRACTICE ASSISTANT, urgent care, hospital, or senior care...) When possible be specific @ -No Did you speak to anyone other than the patient for history (EMS, parent, family, police, friend...)? What history was obtained from this source @ - is present helps provide history including symptoms not being similar to previous cardiac disease Did you review nursing and triage notes (agree or disagree)? Why? @ -I reviewed and agree with nursing and triage notes Were old charts reviewed (outside hosp., previous admission, EMS record, old EKG, old radiological studies, urgent care reports/EKG's, senior care records)? Report findings @ -No old charts were reviewed Differential Diagnosis (chest pain, altered mental status, abdominal pain women, abdominal pain men, vaginal bleeding, weakness, fever, dyspnea, syncope, headache, dizziness, GI bleed, back pain, seizure, CVA, palpatations, mental health, musculoskeletal)? @ -Differential Chest Pain: Stable Angina, Unstable Angina, STEMI, NSTEMI Aortic Dissection, Pneumothorax, Musculoskeletal, Esophageal Spasm GERD, Cholecystitis, Pancreatitis, Zoster, this is not meant to be an all-inclusive list. EKG interpreted by me (3pts min.). @ -As above X-rays interpreted by me (1pt min.). @ -Chest x-ray does not reveal acute abnormality CT interpreted by me (1pt min.). @ -None done U/S interpreted by me (1pt. min.). @ -None done What testing was considered but not performed or refused? (CT, X-rays, U/S, labs)? Why? @ -None What meds were considered but not given or refused? Why? @ -None Did you discuss the management of the patient with other professionals (professionals i.e. KENNEDY Delong, MEDICAL PRACTICE ASSISTANT, lab, RT, psych nurse, health social work professor, outreach assistant, teacher, coastal/harbor defense officer, lead case manager)? Give summary @ -Case was discussed with Dr. Head who will admit his patient Was smoking cessation discussed for >3mins.? @ -No Was critical care preformed (if so, how long)? @ -No Were there social determinants of health that impacted care today? How? (Homelessness, low income, unemployed, alcoholism, drug addiction, transportation, low edu. Level, literacy, decrease access to med. care, [place] [facility], rehab)? @ -No Was there de-escalation of care discussed even if they declined (Discuss DNR or withdrawal of care, Hospice)? DNR status @ -No What co-morbidities impacted this encounter? (DM, HTN, Smoking, COPD, CAD, Cancer, CVA, ARF, Chemo, Hep., AIDS, mental health diagnosis, sleep apnea, morbid obesity)? @ -History of coronary artery disease Was patient admitted / discharged? Hospital course, mention meds given and route, prescriptions, significant lab abnormalities, going to OR and other pertinent info. @ -Patient presents with chest discomfort. Initial evaluation unremarkable. Patient will be admitted with cardiac consult. Admission orders written. Patient reevaluated and updated. Undiagnosed new problem with uncertain prognosis? @ -No Drug Therapy requiring intensive monitoring for toxicity (Heparin, Nitro, Insulin, Cardizem)? @ -No Were any procedures done? @ -No Diagnosis/symptom? @ -Chest pain Acute, or Chronic, or Acute on Chronic? @ -Acute Uncomplicated (without systemic symptoms) or Complicated (systemic symptoms)? @ -Default Side effects of treatment? @ -No Exacerbation, Progression, or Severe Exacerbation? @ -No Poses a threat to life or bodily function? How? (Chest pain, [place], [place], pneumonia, PE, COPD, DKA, ARF, appy, cholecystitis, CVA, Diverticulitis, Homicidal, Suicidal, threat to staff... and all critical care pts) @ -Threat to cardiac function (Cliff Mauricio) Disposition <Paulette Franz - Last Filed: 01/17/25 11:18> Is patient prescribed a controlled substance at d/c from ED?: No Time of Disposition: 14:41 <Cliff Mauricio - Last Filed: 01/17/25 14:42> Clinical Impression: Chest pain Disposition: ADMITTED IP TO THIS HOSP Referrals: Kevin Head MD [Primary Care Provider] - 1-2 days
[2025-01-17 11:35] LABS: Basophils % (A) 0 %; Eosinophils # (A) 0.2 k/uL (0-0.7); Eosinophils % (A) 2 %; HCT 39.7 % (39.0-53.0); HGB 12.3 gm/dL (13.0-17.5); Hypochromasia Slight; Lymphocytes # (A) 1.6 k/uL (1.0-4.8); Lymphocytes % (A) 20 %; MCH 30.5 pg (25.0-35.0); MCV 98.5 fL (80.0-100.0); Mean Platelet Volume 7.5; Monocytes # (A) 0.4 k/uL (0-1.0); Monocytes % (A) 5 %; Neutrophils # (A) 5.8 k/uL (1.3-7.7); Neutrophils % (A) 71 %; Platelet Count 180 k/uL (150-450); RBC 4.03 m/uL (4.30-5.90); RDW 14.1 % (11.5-15.5); WBC 8.1 k/uL (3.8-10.6)
[2025-01-17 11:51] LABS: ALT 17 U/L (4-49); AST 23 U/L (17-59); African American GFR (CKD) 61 (>60 ml/min/1.73 sqM); Alkaline Phosphatase 90 U/L (38-126); Anion Gap 10 mmol/L; Blood Urea Nitrogen 25 mg/dL (9-20); Calcium 9.5 mg/dL (8.4-10.2); Carbon Dioxide 18 mmol/L (22-30); Chloride 109 mmol/L (98-107); Glucose 120 mg/dL (74-99); Magnesium 2.1 mg/dL (1.6-2.3); Non-African American GFR(CKD) 53 (>60 ml/min/1.73 sqM); Potassium 4.7 mmol/L (3.5-5.1); Sodium 137 mmol/L (137-145); Total Bilirubin 0.9 mg/dL (0.2-1.3); Total Protein 6.8 g/dL (6.3-8.2)
[2025-01-17 11:52] LABS: INR 0.9 (<1.2); Prothrombin Time 10.1 sec (10.0-12.5)
--- NOTE | 2025-01-17 13:57 | XR ---
EXAMINATION TYPE: XR chest 2V DATE OF EXAM: 01/17/2025 CLINICAL INDICATION: Male, 84 years old with history of Chest Pain, TECHNIQUE: Frontal and lateral views of the chest are obtained. COMPARISON: Chest x-ray August 31, 2024 FINDINGS: There is no focal air space opacity, pleural effusion, or pneumothorax seen. Mild cardiome aditya is again seen. Dextroconvex scoliosis is redemonstrated. IMPRESSION: Mild cardiomegaly without acute pulmonary process. [facility], , 01/17/2025 1:54 PM
[2025-01-17] MEDS ORDERED: NITROGLYCERIN SL TABS 0.4 MG TAB SUBLINGUAL PRN (14:40)
[2025-01-17] MEDS: ASPIRIN 81 MG PO STA (15:13)
[2025-01-17] MEDS: NITROGLYCERIN OINT 1 INCH/GM PACKET TOPICAL SCH (15:14)
[2025-01-17] MEDS ORDERED: CLOTRIMAZOLE 1% CREAM 30 GM TUBE TOPICAL PRN (16:15)
[2025-01-17] MEDS: DOCUSATE 100 MG CAP PO SCH (20:48)
[2025-01-17] MEDS: ATORVASTATIN 80 MG TAB PO SCH (20:48)
[2025-01-17] MEDS: POTASSIUM CHLORIDE ER 20 MEQ TAB.ER PO SCH (20:48)
[2025-01-17] MEDS: amLODIPine 10 MG TAB PO SCH (20:48)
[2025-01-17] MEDS: DOXAZOSIN 4 MG TAB PO SCH (20:48)
[2025-01-17] MEDS: LOSARTAN 25 MG TAB PO SCH (20:48)
[2025-01-17] MEDS: VIT A,C & E-LUTEIN-MINERALS 1 EACH TAB PO SCH (20:49)
[2025-01-17] MEDS: DORZOLAMIDE-TIMOLOL 2.23%/0.68 10ML BTL BOTH EYES SCH (20:49)
[2025-01-17] MEDS: LATANOPROST 0.005% OPHTH DROPS 2.5 ML BTL BOTH EYES SCH (20:49)
--- NOTE | 2025-01-17 23:47 | HP ---
HISTORY AND PHYSICAL CHIEF COMPLAINT: Chest pain. HISTORY OF PRESENT ILLNESS: This is another admission for this 84-year-old gentleman. He has had some heart difficulty in the past. Apparently started to have some chest pain, became frightening, came to emergency room. The pain was on the right side of the chest and sounded pleuritic. It bothered him when he took a deep breath with cough. He has had no fever, chills, sputum production, hemoptysis, etc. He has had no swelling in the leg. He had no shortness of breath or diaphoresis. In the emergency room, his EKG was unremarkable and his troponin was negative. REVIEW OF SYSTEMS: He is otherwise doing well. He has had no orthopnea, PND, nausea, vomiting, etc. PAST MEDICAL HISTORY: He has a history of numerous osteoarthritic problems. He has had a history of hypertension, hyperlipidemia, and he has had coronary artery problems in the past. MEDICATIONS: That he has been on include, 1. Metoprolol. 2. Omeprazole. 3. Bumetanide. 4. Losartan. 5. Lipitor. 6. Amlodipine. 7. Eyedrops for glaucoma. 8. Aspirin. He has had some problems with GUILLERMO inhibitors in the past with a cough. Remainder of his history is unremarkable. He does not smoke. PHYSICAL EXAMINATION: VITAL SIGNS: Normal. HEAD, EARS, EYES, NOSE, MOUTH AND THROAT: Normal. CHEST: Clear. CARDIAC: Normal. ABDOMEN: Soft and nontender. EXTREMITIES: Normal except for changes in the feet and knees due to osteoarthritis. ASSESSMENT: He was admitted to the hospital with diagnosis of chest pain, probably noncardiac. PLAN: 1. Bed rest. 2. IV fluids. 3. Serial EKGs and enzymes. 4. Troponin. 5. BNP. 6. Consult with Cardiology. MMODL / IJN: [id number] /
[2025-01-18] MEDS: PANTOPRAZOLE 40 MG TABLET PO SCH (07:00)
[2025-01-18] MEDS: MULTIVITAMINS, THERA 1 EACH TAB PO SCH (08:34)
[2025-01-18] MEDS: METOPROLOL SUCCINATE (ER) 100 MG TAB.ER.24H PO SCH (08:35)
[2025-01-18] MEDS: CHOLECALCIFEROL 125 MCG (5000 IU) TABLET PO SCH (08:35)
[2025-01-18] MEDS: BUMETANIDE 1 MG TAB PO SCH (08:35)
[2025-01-18] MEDS: ASPIRIN 81 MG PO SCH (08:38)
[2025-01-18] MEDS ORDERED: ASPIRIN 325 MG TAB PO SCH (09:00)
[2025-01-18] MEDS ORDERED: OMEGA PO SCH (09:00)
[2025-01-18] MEDS ORDERED: COLLAGEN PO SCH (09:00)
[2025-01-18 09:27] LABS: Chol/HDL Ratio 2.08 Ratio; LDL Cholesterol,Calculated 47.7 mg/dL (0.0-131.0)
--- NOTE | 2025-01-18 10:12 | P.CRDCN ---
History of Present Illness History of present illness: HISTORY OF PRESENT ILLNESS: This is a 84-year-old male with a past medical history significant for coronary artery disease with previous stenting, hypertension, hyperlipidemia, and obesit y. Patient follows in the office with Dr. Pena. We have been asked to see the patient in consultation for chest pain. Patient examined at the bedside. Patient states yesterday he started having chest discomfort. He states the pain was intermittent throughout the day. He states the pain was on the right side of his chest. He denied any radiation of the pain. Denied any associated diaphoresis, shortness of breath, nausea, or vomiting. He states the pain went away on its own when he got to the emergency room. He denies having any further episodes of chest pain or pressure. DIAGNOSTICS: - EKG reveals sinus mechanism with nonspecific ST-T wave changes. - Chest xray mild cardiomegaly without acute pulmonary process. - Laboratory data: WBC 8.1. Hemoglobin 12.3. Platelet count 180. D-dimer 0.56. Sodium 137. Potassium 4.7. BUN 25. Creatinine 1.26. Troponin negative x 3. proBNP 153. - Current home cardiac medications include amlodipine 10 mg at night, metoprolol succinate 100 mg daily, losartan 25 mg at night, Bumex 1 mg daily, atorvastatin 80 mg at night, aspirin 81 mg daily. - Most recent echocardiogram obtained in August 2024 revealed ejection fraction 55 to 60%, trace to mild aortic regurgitation, mild mitral regurgitation, and no pericardial effusion - Cardiac catheterization history: November 2016 with stenting to the proximal LAD -Patient underwent Lexiscan stress test in April 2023 with an EF of 60% and no ischemia noted. REVIEW OF SYSTEMS: At the time of my exam: CONSTITUTIONAL: Denies fever or chills. HEENT: Denies blurred vision, vision changes, or eye pain. Denies hemoptysis CARDIOVASCULAR: Denies chest pain. Denies orthopnea. Denies PND. Denies pal pitations RESPIRATORY: Denies shortness of breath. GASTROINTESTINAL: Denies abdominal pain. Denies nausea or vomiting. HEMATOLOGIC: Denies bleeding disorders. GENITOURINARY: Denies any blood in urine. SKIN: Denies pruitis. Denies rash. PHYSICAL EXAM: VITAL SIGNS: Reviewed. GENERAL: Well-developed in no acute distress. HEENT: Head is normocephalic. Pupils are equal, round. Sclerae anicteric. Mucous membranes of the mouth are moist. Neck supple. No JVD or thyromegaly LUNGS: Respirations even and unlabored. Lungs essentially clear to auscultation bilaterally. HEART: Regular rate and rhythm. S1 and S2 heard. ABDOMEN: Soft. Nondistended. Nontender. EXTREMITIES: Normal range of motion. No clubbing or cyanosis. Peripheral pulses intact. No lower extremity edema NEUROLOGIC: Awake and alert. Oriented x 3. ASSESSMENT: Right sided chest pain, atypical, troponin negative x 3 Coronary artery disease with previous stenting to the LAD, 2016 Hypertension Hyperlipidemia Obesity: BMI 33.1 PLAN: An acute coronary event has been ruled out No need to obtain echocardiogram as this was performed in August 2024 Resume home cardiac medications as listed above Discussed options with patient including inpatient stress test to be performed on Monday. Patient wishes to be discharged home today and would like to have an outpatient stress test performed. Increase activity as tolerated this morning. If patient has no further episodes of chest pain, he may be discharged home and follow-up in the office with Dr. Pena and we will plan for outpatient stress testing Nurse practitioner note has been reviewed by physician. Signing provider agrees with the documented findings, assessment, and plan of care documented by STUD MASTER/MISTRESS as a scribe. Past Medical History Past Medical History: Hyperlipidemia, Hypertension, Osteoarthritis (OA) Additional Past Medical History / Comment(s): Hx detached retina. History of Any Multi-Drug Resistant Organisms: None Reported Past Surgical History: Heart Catheterization With Stent, Hernia Repair, Joint Replacement Additional Past Surgical History / Comment(s): 11/11/16 Cardiac stent to LAD. Other surgical hx: Right knee replacement, left hip replacement, hemorroidectomy, colonoscopy. Past Anesthesia/Blood Transfusion Reactions: No Reported Reaction Date of Last Stent Placement:: 11/11/16 Past Psychological History: No Psychological Hx Reported Additional Psychological History / Comment(s): Pt resides with his spouse. He uses a cane prn. He drives. Smoking Status: Never smoker Past Alcohol Use History: None Reported Additional Past Alcohol Use History / Comment(s): Pt states he started smoking about 1958 and quit in 1975 Past Drug Use History: None Reported - Past Family History Mother Family Medical History: Cancer, Congestive Heart Failure (CHF), Diabetes Mellitus Additional Family Medical History / Comment(s): Skin cancer Father Family Medical History: Diabetes Mellitus Additional Family Medical History / Comment(s): Father had diabetes and a hiatal hernia. Medications and Allergies Home Medications Medication Instructions Recorded Confirmed Type Aspirin [Adult Low Dose Aspirin EC] 81 mg PO DAILY 11/03/16 01/17/25 History Omeprazole 20 mg PO BID 11/03/16 01/17/25 History Terazosin [Hytrin] 5 mg PO HS 11/03/16 01/17/25 History Atorvastatin [Lipitor] 80 mg PO HS #30 tab 11/12/16 01/17/25 Rx Collagen 3 cap PO DAILY 08/29/24 01/17/25 History Docusate [Colace] 100 mg PO BID 08/29/24 01/17/25 History Dorzolamide-Timol 2.23%/0.68% 1 drop BOTH EYES BID 08/29/24 01/17/25 History [Cosopt] Latanoprost [Latanoprost 0.005%] 1 drop BOTH EYES HS 08/29/24 01/17/25 History Multivit-Min/FA/Lycopen/Lutein 1 tab PO DAILY 08/29/24 01/17/25 History [Centrum Silver Tablet] Metoprolol Succinate (ER) [Toprol 100 mg PO DAILY #30 tab 09/02/24 01/17/25 Rx XL] Potassium Chloride ER [K-Dur 20] 20 meq PO BID #60 tab 09/02/24 01/17/25 Rx amLODIPine [Norvasc] 10 mg PO HS #30 tab 09/02/24 01/17/25 Rx Bumetanide [BUMEX] 1 mg PO DAILY 01/17/25 01/17/25 History Cholecalciferol [Vitamin D3 (125 125 mcg PO DAILY 01/17/25 01/17/25 History Mcg = 5000 Iu)] Ketoconazole 2% Cream [Nizoral 2%] 1 applic TOPICAL BID PRN 01/17/25 01/17/25 History Losartan [Cozaar] 25 mg PO HS 01/17/25 01/17/25 History [place]-3 1200mg 1,200 mg PO DAILY 01/17/25 01/17/25 History Vit C/E/Zn/Coppr/Lutein/Zeaxan 1 cap PO BID 03/14/25 03/14/25 History [Preservision Areds 2 Softgel] Allergies Allergy/AdvReac Type Severity Reaction Status Date / Time No Known Allergies Allergy Verified 01/17/25 15:00 Physical Exam Vitals: Vital Signs Temp Pulse Pulse Resp BP BP Pulse Ox 01/18/25 07:00 97.8 F 59 L 15 121/69 97 01/18/25 02:00 98.1 F 56 L 16 103/55 93 L 01/17/25 20:48 62 01/17/25 20:00 97.5 F L 62 16 123/75 97 01/17/25 17:44 97.5 F L 68 15 139/89 98 01/17/25 17:03 97.6 F 66 16 135/80 96 01/17/25 14:33 58 L 18 130/84 99 01/17/25 11:06 97.7 F 63 20 138/83 99 Intake and Output 01/17/25 01/18/25 01/18/25 22:59 06:59 14:59 Other: Voiding Method Toilet # Voids 1 2 Weight 117.027 kg Results 01/17/25 11:22 01/17/25 11:22 Cardiac Enzymes 01/17/25 01/17/25 01/17/25 Range/Units 11:22 11:22 15:02 AST 23 (17-59) U/L Troponin I <0.012 <0.012 (0.000-0.034) ng/mL 01/17/25 Range/Units 18:36 AST (17-59) U/L Troponin I <0.012 (0.000-0.034) ng/mL Coagulation 01/17/25 Range/Units 11:22 PT 10.1 (10.0-12.5) sec APTT 24.0 (22.0-30.0) sec Lipids 01/17/25 Range/Units 11:22 Triglycerides 72.50 (0.00-149.00) mg/dL Cholesterol 120.00 (0.00-200.00) mg/dL HDL Cholesterol 57.80 (40.00-60.00) mg/dL Cholesterol/HDL Ratio 2.08 Ratio CBC 01/17/25 Range/Units 11:22 WBC 8.1 (3.8-10.6) k/uL RBC 4.03 L (4.30-5.90) m/uL Hgb 12.3 L (13.0-17.5) gm/dL Hct 39.7 (39.0-53.0) % Plt Count 180 (150-450) k/uL Comprehensive Metabolic Panel 01/17/25 Range/Units 11:22 Sodium 137 (137-145) mmol/L Potassium 4.7 (3.5-5.1) mmol/L Chloride 109 H (98-107) mmol/L Carbon Dioxide 18 L (22-30) mmol/L BUN 25 H (9-20) mg/dL Creatinine 1.26 H (0.66-1.25) mg/dL Glucose 120 H (74-99) mg/dL Calcium 9.5 (8.4-10.2) mg/dL AST 23 (17-59) U/L ALT 17 (4-49) U/L Alkaline Phosphatase 90 (38-126) U/L Total Protein 6.8 (6.3-8.2) g/dL Albumin 4.0 (3.5-5.0) g/dL Current Medications Generic Name Dose Route Start Last Admin Trade Name Freq PRN Reason Stop Dose Admin Amlodipine Besylate 10 mg 01/17/25 21:00 01/17/25 20:48 Amlodipine 10 Mg Tab PO 10 mg HS BRENDEN Administration Aspirin 81 mg 01/18/25 09:00 01/18/25 08:38 Aspirin 81 Mg PO 81 mg DAILY BRENDEN Administration Atorvastatin Calcium 80 mg 01/17/25 21:00 01/17/25 20:48 Atorvastatin 80 Mg Tab PO 80 mg HS BRENDEN Administration Bumetanide 1 mg 01/18/25 09:00 01/18/25 08:35 Bumetanide 1 Mg Tab PO 1 mg DAILY BRENDEN Administration Cholecalciferol 125 mcg 01/18/25 09:00 01/18/25 08:35 Cholecalciferol 125 Mcg (5000 Iu) Tablet PO 125 mcg DAILY BRENDEN Administration Clotrimazole 1 applic 01/17/25 16:15 Clotrimazole 1% Cream 30 Gm Tube TOPICAL BID PRN between toes & bottom of feet Docusate Sodium 100 mg 01/17/25 21:00 01/18/25 08:34 Docusate 100 Mg Cap PO 100 mg BID BRENDEN Administration Dorzolamide/Timolol 1 drops 01/17/25 21:00 01/18/25 08:35 Dorzolamide-Timolol 2.23%/0.68 10ml Btl BOTH EYES 1 drops BID BRENDEN Administration Doxazosin Mesylate 4 mg 01/17/25 21:00 01/17/25 20:48 Doxazosin 4 Mg Tab PO 4 mg HS BRENDEN Administration Latanoprost 1 drops 01/17/25 21:00 01/17/25 20:49 Latanoprost 0.005% Ophth Drops 2.5 Ml Btl BOTH EYES 1 drops HS BRENDEN Administration Losartan Potassium 25 mg 01/17/25 21:00 01/17/25 20:48 Losartan 25 Mg Tab PO 25 mg HS BRENDEN Administration Metoprolol Succinate 100 mg 01/18/25 09:00 01/18/25 08:35 Metoprolol Succinate (Er) 100 Mg Tab.Er.24h PO 100 mg DAILY BRENDEN Administration Multivitamins 1 each 01/18/25 09:00 01/18/25 08:34 Multivitamins, Thera 1 Each Tab PO 1 each DAILY BRENDEN Administration Multivitamins/Minerals 1 each 01/17/25 21:00 01/18/25 08:34 Vit A,C & J-Xigqup-Lvipmgan 1 Each Tab PO 1 each BID BRENDEN Administration Nitroglycerin 0.4 mg 01/17/25 14:40 Nitroglycerin Sl Tabs 0.4 Mg Tab SUBLINGUAL Q5M PRN Chest Pain Pantoprazole Sodium 40 mg 01/18/25 07:30 01/18/25 07:00 Pantoprazole 40 Mg Tablet PO 40 mg DAILY@0730 BRENDEN Administration Potassium Chloride 20 meq 01/17/25 21:00 01/18/25 08:35 Potassium Chloride Er 20 Meq Tab.Er PO 20 meq BID BRENDEN Administration Intake and Output 01/17/25 01/18/25 01/18/25 22:59 06:59 14:59 Other: Voiding Method Toilet # Voids 1 2 Weight 117.027 kg 01/17/25 11:22 01/17/25 11:22
[2025-01-18 15:53] VITALS: BP 130/70; PULSE 55; RESP 16; TEMP 97.9
--- NOTE | 2025-01-19 19:14 | DS ---
DISCHARGE SUMMARY CHIEF COMPLAINT: Chest pain. HISTORY OF PRESENT ILLNESS AND PHYSICAL EXAMINATION: Details of this man's history and physical can be found in the initial workup. LABORATORY STUDIES: While he was in the hospital, he had laboratory studies, details of which can be found in the laboratory section of his chart and included normal cardiac enzymes. COURSE IN THE HOSPITAL: After admission, he was placed on bedrest, started on intravenous fluids, and had serial EKGs and enzymes. He was seen by Cardiology. It was felt that he could be discharged and that he had right anterior chest wall pain, which was not likely to be due to cardiac disorder. There was no evidence of pulmonary embolism or pleurisy. He will go home on his usual activity, diet, medication and follow up in several days. FINAL DIAGNOSES: 1. Right anterior chest wall pain, noncardiac. 2. History of hypertension. 3. History of coronary artery disease. 4. Osteoarthritis. OPERATIONS: None. CONSULTATIONS: Cardiology. MELANIE / MILANA: [id number] /
== END 2025-01-18 16:55 | disposition home or self-care (01) ==
LOC: EC 10:59 → 6NMEDSUR 14:40
PROVIDERS: ADMIT Family Medicine; ATTEND Family Medicine
DX: R07.89 Other chest pain (principal); I25.10 Atherosclerotic heart disease of native coronary artery without angina pectoris; I10 Essential (primary) hypertension; E66.9 Obesity, unspecified; E78.5 Hyperlipidemia, unspecified; M19.90 Unspecified osteoarthritis, unspecified site; Z68.33 Body mass index [BMI] 33.0-33.9, adult; Z79.82 Long term (current) use of aspirin; Z79.899 Other long term (current) drug therapy; Z95.5 Presence of coronary angioplasty implant and graft; Z96.642 Presence of left artificial hip joint; Z96.651 Presence of right artificial knee joint; Z87.891 Personal history of nicotine dependence
CPT/HCPCS: 99285; 36415; 93005; 85379; 83880; 80061; 80053; 83735; 84484; 85025; 85610; 85730; 71046; G0378 ×2